=== PATIENT | male | born 1975 | race Caucasian/White ===

== ENCOUNTER 2021-09-07 16:22 | Emergency (ER) | payer OTHER, SELFPAY ==
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
[2021-09-07 17:52] VITALS: BP 129/81; PULSE 79; RESP 18; TEMP 36.3; O2SAT 98; BMI 30.9
[2021-09-07 19:46] VITALS: BP 130/80; PULSE 78; RESP 18; TEMP 36.6; O2SAT 98
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
== END 2021-09-07 21:09 | disposition home or self-care (01) ==
LOC: HO.ED 20:39
PROVIDERS: Emergency Provider Emergency Medicine
DX: M25.562 Pain in left knee (principal)
CPT/HCPCS: 73560; 99282; 99283

== ENCOUNTER 2024-05-25 10:25 | Outpatient (REF) | payer MEDICAID, SELFPAY ==
[2024-05-25 11:08] LABS: MANUAL DIFF FLAG NO
[2024-05-25 11:26] LABS: Basophils Absolute Auto 0.1 X10*3/uL (0.0-0.2); Basophils Percent Auto 0.6 % (0-2); Eosinophils Absolute Auto 0.3 X10*3/uL (0.0-0.4); Eosinophils Percent Auto 3.7 % (0-4); Hematocrit 41.5 % (42.0-52.0); Imm Gran Abs Auto 0.04 X10*3/uL (0.00-0.03); Imm Gran Pct Auto 0.5 % (0.0-0.4); Lymphocytes Absolute Auto 2.1 X10*3/uL (1.2-4.9); Lymphocytes Percent Auto 24.3 % (20-40); Mean Corpuscular HGB Conc 31.3 g/dl (31.0-36.0); Mean Corpuscular Hemoglobin 26.6 pg (27.0-33.0); Mean Platelet Volume 10.4 fL (9.4-12.4); Monocytes Absolute Auto 0.7 X10*3/uL (0.1-1.2); Monocytes Percent Auto 7.4 % (2-11); Neutrophils Absolute Auto 5.6 x10*3/uL (2.0-8.3); Neutrophils Percent Auto 63.5 % (45-73); Platelet Count 418 X10*3/uL (160-400); Red Blood Count 4.88 X10*6/uL (4.60-5.80); Red Cell Distribution Width 13.9 % (11.0-16.0); White Blood Count 8.8 X10*3/uL (4.8-10.8)
[2024-05-25 11:35] LABS: Alanine Aminotransferase 8 U/L (0-40); Albumin Level 4.3 g/dL (3.5-5.0); Alkaline Phosphatase 94 U/L (39-117); Anion Gap 11 (12-20); Aspartate Amino Transferase 13 U/L (5-37); Bilirubin Total 0.2 mg/dL (0.0-1.0); Blood Urea Nitrogen 9 mg/dL (9-16); Calcium 9.7 mg/dL (8.4-10.2); Carbon Dioxide 27 mmol/L (22-29); Chloride 107 mmol/L (96-108); Cholesterol 183 mg/dL (<200); Estimated Glomerular Filt Rate > 60; Glucose Random 95 mg/dL (60-115); HDL Cholesterol 41 mg/dL (>40); LDL Cholesterol Calculated 129 mg/dL (<100); Potassium 4.2 mmol/L (3.3-5.1); Sodium 141 mmol/L (135-145); Total Protein 8.2 g/dL (6.5-8.0); Triglycerides 67 mg/dL (<150)
== END 2024-05-25 10:26 | disposition home or self-care (01) ==
LOC: HO.10HDL 10:25
PROVIDERS: Visit Provider Internal Medicine
DX: Z00.01 Encounter for general adult medical examination with abnormal findings (principal); H54.62 Unqualified visual loss, left eye, normal vision right eye; I10 Essential (primary) hypertension; L10.0 Pemphigus vulgaris
CPT/HCPCS: 36415; 80053; 80061; 85025

== ENCOUNTER 2024-11-22 10:56 | Outpatient (REF) | payer MEDICAID, SELFPAY ==
[2024-11-22 12:29] LABS: Alanine Aminotransferase 15 U/L (0-40); Albumin Level 4.1 g/dL (3.5-5.0); Alkaline Phosphatase 106 U/L (39-117); Anion Gap 11 (12-20); Aspartate Amino Transferase 30 U/L (5-37); Bilirubin Total 0.6 mg/dL (0.0-1.0); Blood Urea Nitrogen 6 mg/dL (9-16); Calcium 9.2 mg/dL (8.4-10.2); Carbon Dioxide 27 mmol/L (22-29); Chloride 107 mmol/L (96-108); Cholesterol 145 mg/dL (<200); Estimated Glomerular Filt Rate > 60; Glucose Random 93 mg/dL (60-115); HDL Cholesterol 40 mg/dL (>40); LDL Cholesterol Calculated 92 mg/dL (<100); Potassium 4.1 mmol/L (3.3-5.1); Sodium 141 mmol/L (135-145); Total Protein 8.4 g/dL (6.5-8.0); Triglycerides 67 mg/dL (<150)
[2024-11-22 12:39] LABS: Uric Acid 5.7 mg/dL (3.4-7.0)
--- OUTSIDE RECORDS SUMMARY | 2024-11-22 12:55 | XMS_ITS | Clinical Summary ---
Author Organization [facility] Address [address] [place] [address] Care Team Providers Care Blower Room Attendant Name Role Phone Chyna Borden NP Primary Care Provider [phone] Source Comments PLEASE NOTE, if this patient is a minor, it may be UNLAWFUL to discuss sensitive information that is contained in these records (such as FAMILY PLANNING, MENTAL HEALTH or SUBSTANCE ABUSE) with the minor patient's parent or other person without the patient's specific authorization.[facility] Allergies No known active allergies Medications multivitamin tablet Take 1 Tablet by mouth once daily 90 Tablet 3 2 Active loratadine (CLARITIN) 10 mg tablet Take 1 Tablet by mouth once daily as needed for allergies 90 Tablet 2 3 Active sodium chloride (OCEAN) 0.65 % nasal sprayIndication s:Epistaxis Place 1 [place] into the nostril(s) as needed for congestion 104 mL 3 3 Active diclofenac sodium (VOLTAREN) 1 % gel Apply topically 2 (two) times daily 450 g 5 3 Active fluticasone (FLONASE) 50 mcg/actuation nasal spray SPRAY 1 SPRAY INTO EACH NOSTRIL EVERY DAY 48 mL 1 3 Active methotrexate 2.5 mg tablet TAKE 6 TABLETS BY MOUTH EVERY WEEK 96 Tablet 1 3 Active folic acid (FOLVITE) 1 mg tablet TAKE 1 TABLET BY MOUTH EVERY DAY 90 Tablet 1 4 Active Active Problems Problem Noted Date Diagnosed Date Osteoarthritis of left knee 06/07/2023 Overview (06/07/2023): Stable. Assessment & Plan (06/07/2023 1:58 PM EDT): Stable. Increased pressure in the eye, bilateral 023 Overview (06/07/2023): 07/16/[address] Gonsalo Adam. Pt reports Dr. Adam does not accept his new health insurance. Pt in need of new ophthalmology for injections. Assessment & Plan (06/07/2023 2:00 PM EDT): Pt reports Dr. Adam does not accept his new health insurance. Pt in need of new ophthalmology for injections. Class 1 obesity due to exces s calories without serious comorbidity with body mass index (BMI) of 30.0 to 30.9 in adult 03/24/2023 Overview (03/24/2023): Blanket body weight: 160 lb 12.8 oz (72.9 kg) Adjusted ideal body weight: 180 lb 14.1 oz (82 kg) -4.2 lb Working on lower caloric intake and increasing activities. Assessment & Plan (06/07/2023 1:52 PM EDT): 3.0 lb gained since last office visit. Discussed lower caloric intake and exercises. Assessment & Plan (03/24/2023 11:52 PM EDT): Working on lower caloric intake and increasing activities. Chronic rhinitis 03/07/2022 Overview (03/07/2022): PLAN: -NeilMed Sinus Rinse TID -Flonase QD (one spray to each nare) -Afrin TID (3 sprays each nare) x3 days only -Vaseline to nasal vestibule in morning and at night to prevent crusting -Use home humidifier and avoid allergens -Follow up as needed, sooner if issue or symptoms worsen ?? Patient is in agreement with the above plan and understands the given recommendations. I was physically present for the E/M service provided. I have personally reviewed all the relevant radiographic images and laboratory results reported above. ?4:55 PM Last Resulted: 03/05/22 Assessment & Plan (05/28/2022 4:16 PM EDT): Continue to follow up with ENT Complex tear of medial menis cus of left knee as current injury 03/07/2022 Overview (03/07/2022): 07/2021 surgically repaired. Assessment & Plan (03/24/2023 11:53 PM EDT): Stable after surgery. [place]-Schlatter's disease of both knees 022 Overview (03/07/2022): Right knee xray 05/2020 Diverticulosis of sigmoid colon 02/10/2022 Assessment & Plan (06/07/2023 1:53 PM EDT): Asymptomatic. Noted during colonoscopy. Pemphigoid 02/06/2022 Overview (02/06/2022): ASSESSMENT/PLAN: Vastly improved nasal mucosa after use of nasal saline with baby shampoo. Avoid picking. If worsens, consider evaluation by skin grader at [facility] [place]he works in [place]). Assessment & Plan (06/07/2023 1:48 PM EDT): Referred to ophthalmology. Temporarily refilled folic acid (FOLVITE) 1 mg tablet Take 1,000 mcg by mouth once daily methotrexate sodium 2.5 mg tablet TAKE 6 TABLETS BY MOUTH EVERY WEEK Pt to go [place] [facility] [place] vision changes. Assessment & Plan (03/24/2023 11:56 PM EDT): Stable. Managed by dermatology Empty nose syndrome 02/06/2022 Overview (02/06/2022): ASSESSMENT/PLAN: Vastly improved nasal mucosa after use of nasal saline with baby shampoo. Avoid picking. If worsens, consider evaluation by skin grader at [facility] [place] (he works in [place]). Electronically signed by Akhil Alonso MD Hx of colonoscopy 02/06/2022 Overview (02/10/2022): [ ] 01/2027 colonoscopy Findings: ?Two sessile polyps were found in the transverse colon and ?cecum. The polyps were 2 to 3 mm in size. These polyps were ?removed with a cold snare. Resection and retrieval were ?complete. ?Multiple diverticula were found in the sigmoid colon. There ?was inflammation c/w diverticulitis. Impression: ?- Two 2 to 3 mm polyps in the transverse ?colon and in the cecum, removed with a ?cold snare. Resected and retrieved. ?- Diverticulosis in the sigmoid colon. Recommendation: ?- Await pathology results. ? - Repeat colonoscopy in 5 years for ?surveillance. Blister (nonthermal) of oral cavity, initial enc ounter 11/28/2020 Overview (12/01/2020): DDx Pemphigus. Spoke with dentist at [facility] Dr. Ivett Drew who feels pt oral lesion might be due to Pemphigus. Dentist referred patient to [facility] oral pathology for eval. And treatment. Dr. Dove will be sending fax with recommended lab test to assist to confirm dx. Contact Dr. Earl's office and office check with Dr. Earl who stated he does see patient with this type of condition. Urgent referral will be placed. Assessment & Plan (03/24/2023 11:50 PM EDT): Stable. Assessment & Plan (05/28/2022 4:16 PM EDT): Due for dental cleaning. Pt to contact dentist to schedule visit. 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 Adam Assessment & Plan (03/24/2023 11:54 PM EDT): Sharmila. Followed by ophthalmology Central retinal vein occlusion of left eye 11/02 Overview (06/07/2023): Was managed by [facility] ophthalmology who does not accept patient's health insurance. Previously managed by [facility] [place]. Montoya. Referred to ophthalmology. Temporarily refilled folic acid (FOLVITE) 1 mg tablet Take 1,000 mcg by mouth once daily methotrexate sodium 2.5 mg tablet TAKE 6 TABLETS BY MOUTH EVERY WEEK Pt to go to [facility] for vision changes. Assessment & Plan (06/07/2023 1:49 PM EDT): Referred to ophthalmology. Temporarily refilled folic acid (FOLVITE) 1 mg tablet Take 1,000 mcg by mouth once daily methotrexate sodium 2.5 mg tablet TAKE 6 TABLETS BY MOUTH EVERY WEEK Pt to go to [facility] for vision changes. Assessment & Plan (03/24/2023 11:50 PM EDT): Followed by ophthalmology. Sharmila. Hyperlipidemia 10/19/2020 Overview (03/07/2022): The 10-year ASCVD risk score (Kenziedaniela REBOLLAR Jr., et al., 2013) is: 3.9% 10/19/20: The 10-year ASCVD risk score (Kenziedaniela REBOLLAR Jr., et al., 2013) is: 7.8% - will work on diet change, f/u in 1 year Assessment & Plan (03/24/2023 11:54 PM EDT): Lab Results Component Value Date TRIGLYC 56 02/08/2022 CHOL 190 02/08/2022 HDL 45 02/08/2022 LDL 134 (H) 02/08/2022 NONHDL 145 02/08/2022 stable. Ordered fasting lipids. Assessment & Plan (03/07/2022 11:50 AM EDT): Lab Results Component Value Date TRIGLYC 56 02/08/2022 CHOL 190 02/08/2022 HDL 45 02/08/2022 LDL 134 (H) 02/08/2022 NONHDL 145 02/08/2022 History of tobacco use 10/17/2020 Overview (10/17/2020): 10/17/20: no smoking x 1 month Assessment & Plan (06/07/2023 1:51 PM EDT): Quit years ago. Assessment & Plan (04/18/2021 5:11 PM EDT): Recommend to quit. Pt is trying. Assessment & Plan (10/17/2020 2:50 PM EST): No smoking x 1 month Commended! No cravings at the moment, declines meds at this moment Central retinal vein occlusi on with macular edema of left eye 10/15/2020 Apophysitis of patella 05/24/2020 Overview (05/24/2020): Hx of apophysitis of the Tibial Tuberosity as a child. Pt c/o bilateral knee pain Resolved Problems Problem Noted Date Diagnosed Date Resolved Date Lack of adequate food 10/17/20202022 Assessment & Plan (10/19/2020 3:13 PM EST): Patient is experiencing food insecurity. Health impacts include: Worsened chronic disease mgmt Plan: Food Insecurity Z59.4 added to the problem list and Referred to on-team healthcare consultant for further assessment Lack of housing 10/17/2020 06/07/2023 Assessment & Plan (10/19/2020 3:13 PM EST): Patient is experiencing housing insecurity:? Problems with housing conditions Health impacts include: Other affects health goals PLAN:? Housing Insecurity Z59.1 added to the problem list and Referral to on- team Survey Interviewer for further assessment Immunizations Name Administration Dates Next Due Flu, Multi Dose 0.5 ML 10/17/2020 Hep B, Adult/Adol (ENERGIX/RECOMBIVAX) PNEUMOCOCCAL POLYSACCHARIDE PPV23 05/24/2020 Pfizer COVID vaccine, aguilar VALDES cap, 12+ 0 02/06/2022 TDAP 02/02/2016 Family History Medical History Relation Name Comments Other Father liver disease d ue drug and alcoholism Other Mother arthritis Relation Name Status Comments Father Alive Mother Alive Social History Tobacco Use Types Packs/Day Years Used Date Smoking Tobacco: Every Day Cigarettes Started: 03/05/2022 Smokeless Tobacco: Never Tobacco Cessation:Ready to Q uit: Not Asked; Counseling Given: Not Answered Comments:Cutting down. Alcohol Use Standard Drinks/Week Comments Not Currently 0 (1 standard drink = 0.6 oz pur e alcohol) used to drink socially. Social Connections Answer Date Recorded Connectedness 0 05/29/2024 Financial Resource Strain Answer Date R ecorded Financial Resource Strain 0 2019 Stress Answer Date Recorded Stress 0 03/14/2020 Physical Activity Answer Date Recorded Physical Activity 0 03/14/2020 Food Insecurity Answer Date Recorded Food 0 03/24/2023 Transportation Needs Answer Date Record ed Transportation 0 03/24/2023 Housing Stability Answer Date Recorded Housing 0 03/24/2023 Safety and Environment Answer Date Kaz rded Safety 0 03/14/2020 Utilities Answer Date Recorded Utilities 0 03/24/2023 Employment Answer Date Recorded Stress 0 03/24/2023 Sex and Gender Information Value Date Recorded Sex Assigned at Male 10/17/2020 11:27 AM PST Legal Sex Male 10:23 AM PDT Gender Identity Male 10/17/2020 11:27 AM PST Sexual Orientation Straight 10/17/2020 11 :27 AM PST Last Filed Vital Signs Vital Sign Reading Time Taken Comments Blood Pressure 123/87 06/04/2023 11:11 AM EDT Pulse 72 06/04/2023 11:11 AM EDT Temperature 36.8 ??C (98.3 ??F) 06/04/2023 11:11 AM E DT Respiratory Rate 18 06/04/2023 11:11 AM EDT Oxygen Saturation 97% 03/07/2022 11:47 AM EDT Inhaled Oxygen Concentration - - Weight 97.1 kg (214 lb) 06/04/2023 11:11 AM EDT Height 178 cm (5' 10.08 ) 03/24/2023 3:22 PM EDT Body Mass Index 30.64 03/24/2023 3:22 PM EDT Plan of Treatment Health Maintenance Due Date Last Done Comments Tobacco Screening 1977 Imm-Zoster, Recombinant (1 of 2) 1996 Imm-Pneumococcal (2 of 2 - PCV) 05/24/2021 Tobacco Cessation Counseling (#1) 03/05/2022 CT Colonography 2022 FIT/gFOBT 2022 Fecal DNA 2022 Flexible Sigmoidoscopy 2022 Imm-Hepatitis B (2 of 3 - 19 + 3-dose series) 04/21/2023 03/24/2023 Annual Preventive Care Visit 03/24/202411/2022, 03/07/2022, 10/17/2020 [id number] ( season) 2024 02/06/2022, 01/30/2021, 01/09/2021 Imm-Influenza (#1) 2024 10/17/2020 Hypertension Screening (#1) 06/03/2024 LTBI Screening (#1) 06/04/2024 06/04/2023 Syphilis Screening 06/04/2024 06/04/2023, 10/17/2020 Alcohol and Drug Screen 09/22/2024 03/24/20 23, 09/27/2021, 04/10/2021, Additional history exists Depression Annual Screen 09/22/2024 023, 09/27/2021, 10/17/2020 Imm-DTaP/Tdap/Td (2 - Td or Tdap) 02/01/2026 016 Diabetes Screening 06/04/2026 06/04/2023, 0 02/08/2022, 02/08/2022, Additional history exists Lipid Screening 06/04/2028 06/04/2023, 05/23, 02/08/2022, Additional history exists Colonoscopy 11/22/2031 11/21/2021 Colorectal Cancer Screening 11/22/2031 HIV Screening Completed 10/17/2020, 10/17/2020 Hepatitis C Screening Completed 10/17/2020, 021 Procedures Procedure Name Priority Date/Time Associated Diagnosis Comments SYPHILIS AB/REFLEX Routine 06/04/2023 12 :13 PM EDT Screening examination for venereal disease QUANTIFERON-TB GOLD Routine 06/04/2023 1 2:13 PM EDT Screening for tuberculosis COMPREHENSIVE METABOLIC PANEL Routine 06/04/2023 12:13 PM EDT Mixed hyperlipidemia Taking medication for chronic disease LIPID PANEL Routine 06/04/2023 12:13 PM EDT Encounter for screening for cardiovascular disorders HISTORIC COLONOSCOPY 11/21/2021 3:00 AM EST HIV 1/2 AG/AB Routine 10/17/2020 3:21 PM EST Routine general medical examination at a health care facility HEPATITIS C ANTIBODY Routine 10/17/2020 3:21 PM EST Routine general medical examination at a health care facility from Last 3 Months or Most Recently Relevant to Health Maintenance Results * SYPHILIS AB/REFLEX (06/04/2023 12:13 PM EDT) T.PALLIDUM AB NEGATIVE NEGATIVE [facility] Comment: (NOTE) No antibodies to T. pallidum (the agent causing syphilis) were detected in the specimen. This result, however, does not exclude very recent T. pallidum infection; testing of a second specimen, collected 2-4 weeks after this specimen, is recommended if the index of suspicion for recent infection is high. Blood Blood / Unknown 06/04/2023 1 2:13 PM EDT Chyna Borden NP LAB - BLOOD DRAW Final Result Performing Organization Address [facility] Co de Phone Number [facility] [id number] [place] [address], [place] * QUANTIFERON-TB GOLD (06/04/2023 12:13 PM EDT) [facility] QUANTIFERON-TB GOLD NEGATIVE NEGATIVE [facility] [place] Comment: (NOTE) Negative test result. M. tuberculosis complex infection unlikely. NIL 0.04 IU/mL [facility] MITOGEN-NIL >10.00 IU/mL [facility] TB1-NIL 0.00 IU/mL [facility] TB2-NIL <0.00 IU/mL [facility] Comment: (NOTE) The Nil tube value reflects the background interferon gamma immune response of the patient's blood sample. This value has been subtracted from the patient's displayed TB and Mitogen results. Lower than expected results with the Mitogen tube prevent false-negative Quantiferon readings by detecting a patient with a potential immune suppressive condition and/or suboptimal pre-analytical specimen handling. The TB1 Antigen tube is coated with the M. tuberculosis-specific antigens designed to elicit responses from TB antigen primed CD4+ helper T-lymphocytes. The TB2 Antigen tube is coated with the M. tuberculosis-specific antigens designed to elicit responses from TB antigen primed CD4+ helper and CD8+ cytotoxic T-lymphocytes. For additional information, please refer to https://education.Immunetics.Vascular Magnetics/faq/DCC861 (This link is being provided for informational/ educational purposes only.) Blood Blood / Unknown 06/04/2023 1 2:13 PM EDT Chyna Borden NP LAB - BLOOD DRAW Final Result Performing Organization Address [facility]/ZIP Co de Phone Number [facility] [address] [address], [place] * (ABNORMAL) LIPID PANEL (06/04/2023 12:13 PM EDT) HDL 45 >39 mg/dL [facility] CHOLESTEROL 187 0 - 200 mg/dL [facility] TRIGLYCERIDE 62 0 - 150 mg/dL [facility] LDL 130(H) <130 mg/dL [facility] Comment: REFERENCE RANGE: Adult >= 18 years: - Desirable: ??<100 - Above desirable: 100-129 - Borderline high: 130-159 - High: 160-189 - Very High: >=190 Pediatric 2-17 years: - Acceptable: <110 - Borderline high: 110-129 - High: >=130 Reference ranges have not been established for patients that are less than 24 months of age. CARDIAC RISK RATIO 4.2 <5 [facility] NON HDL CHOL 142 mg/dL [facility] Comment: Reference Range: The non-HDL Cholesterol value should not exceed the desired LDL-C by more than 30 mg/dl. Processed and/or performed at [address] [place] [address] Blood Blood / Unknown 06/04/2023 1 2:13 PM EDT us Chyna Borden NP LAB - BLOOD DRAW Final Result [address] [address], [place] [phone] * COMPREHENSIVE METABOLIC PANEL (06/04/2023 12:13 PM EDT) SODIUM 140 136 - 145 mmol/L [facility] POTASSIUM 4.5 3.6 - 5.1 mmol/L [facility] CHLORIDE 103 98 - 107 mmol/L [facility] CARBON DIOXIDE 27 22 - 32 mmol/L [facility] BUN 10 6 - 20 mg/dL [facility] CREATININE 1.02 0.6 - 1.3 mg/dL [facility] GLUCOSE 68 65 - 99 mg/dL [facility] ALBUMIN 4.4 3.5 - 5.2 g/dL [facility] TOTAL PROTEIN 7.9 6.1 - 8.1 g/dL [facility] CALCIUM 9.6 8.9 - 10.3 mg/dL [facility] ALK PHOS 89 40 - 130 U/L [facility] TOTAL BILIRUBIN 0.3 0.0 - 1.2 mg/dL [facility] AST 18 15 - 41 U/L [facility] ALT 15 10 - 50 U/L [facility] GLOBULIN 3.5 1.9 - 4.1 g/dL [facility] EGFR 92 60 - 128 mL/min/1.7 3m2 [facility] Comment: Estimated glomerular filtration rate calculated using the CKD-EPI refit equation. ANION GAP 10 3 - 17 mmol/L [facility] Comment:Processed and/or per formed at [address] [place] [address] Blood Blood / Unknown 06/04/2023 1 2:13 PM EDT Chyna Borden NP LAB - BLOOD DRAW Final Result Performing Organization Address City/[facility]/ZIP Co de Phone Number [address] [address], [place] [phone] * HISTORIC COLONOSCOPY (11/21/2021 3:00 AM EST) 11/21/2021 3:00 AM EST Chyna Borden DISASTER RECOVERY CONSULTANT PROCEDURES Final Result * HIV 1/2 AG/AB (10/17/2020 3:21 PM EST) Pathologist [facility] HIV 1/2 AB/AG Negative Negative [facility] Comment:Processed and/or per formed at [facility], [address] [place] [address] Blood Blood / Unknown 10/17/2020 3 :21 PM EST Kailey Brunson MD LAB - BLOOD DRAW Final Result [address] [place] [address], [place] [phone] * HEPATITIS C ANTIBODY (10/17/2020 3:21 PM EST) HCV ANTIBODY Negative Negative [facility] Comment:Processed and/or per formed at [address] Blood Blood / Unknown 10/17/2020 3 :21 PM EST us Kailey Brunson MD LAB - BLOOD DRAW Final Result [facility] [address] [facility]?? [place] [address], [place] [phone] from Last 3 Months or Most Recently Relevant to Health Maintenance Insurance [place] [employer] [place] Care Teams Blower Room Attendant Relationship Specialty Start Date End Date Chyna Borden NP [address] [place] [id number] PCP - General DISASTER RECOVERY CONSULTANT Nurse Practitioner 03/14/20
--- OUTSIDE RECORDS SUMMARY | 2024-11-22 12:55 | XMS_ITS | Clinical Summary ---
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 20 tablet 03/30/2024 Active ibuprofen 600 MG tablet Take 1 tablet (600 mg) by mouth every 6 (six) hours if needed for mild pain for up to 20 doses. 20 tablet 03/30/2024 Active Active Problems Problem Noted Date Diagnosed Date Severe dental caries 03/30/2024 Periodontal disease 03/30/2024 Social History Tobacco Use Types Packs/Day Years Used Date Smoking Tobacco: Former Cigarettes Passive Smoke Exposure: Never Smokeless Tobacco: Former Tobacco Cessation:Counseling Given: Not Answered Alcohol Use Standard Drinks/Week Comments Defer 0 (1 standard drink = 0.6 oz pur e alcohol) Sex and Gender Information Value Date Recorded Sex Assigned at Male 07/22/2022 10:17 AM EDT Legal Sex Male 10:17 AM EDT Gender Identity Male 03/30/2024 8:12 AM EDT Sexual Orientation Straight 03/30/2024 8: 12 AM EDT Plan of Treatment Health Maintenance Due Date Last Done Comments CT Colonography 1977 Colonoscopy 1977 Colorectal Cancer Screening 1977 Depression Screening 1977 FIT DNA/Cologuard 1977 FIT 1977 FOBT 1977 Lipid Panel 1977 SDOH Screening 1977 Sigmoidoscopy 1977 Alcohol/Substance Use Screening 1989 Family Planning (PISQ) 1992 Hepatitis C Screening 1995 Dental Prophylaxis 04/29/2013 10/29/2012 Dental Oral Exam 03/28/2015 09/27/2014, 08/28/2012 Dental X-Ray: Full Mouth 08/29/2015 08/28/2012 Dental X-Ray: Bitewings 09/28/2015 09/27/19 15, 08/28/2012 Hepatitis B Vaccines (2 of 3 - 19+ 3-dose series) 04/21/2023 03/24/2023 COVID-19 Vaccine (4 - 2023-2 5 season) 2024 02/06/2022, 01/30/2021, 01/09/2021 Influenza Vaccine (#1) 2024 10/17/2020 Tobacco Screening 03/30/2025 03/30/2024 DTaP/Tdap/Td Vaccines (2 - T d or Tdap) 02/01/2026 02/02/2016 Zoster Vaccines (1 of 2) 2027 RSV Patients and Patients Aged 60 years or older (1 - 1-dose 75+ series) 2052 Pneumococcal Vaccine: Pediatrics (0 to 5 Years) and At-Risk Patients (6 to 49) Years) Aged Out 05/24/2020 No longer eligible b ased on patient's age to complete this topic HIV Screening Completed 10/17/2020 HIB Vaccines Aged Out No longer eligi ble based on patient's age to complete this topic HPV Vaccines Aged Out No longer eligi ble based on patient's age to complete this topic Hepatitis A Vaccines Aged Out No long er eligible based on patient's age to complete this topic IPV Vaccines Aged Out No longer eligi ble based on patient's age to complete this topic Meningococcal Vaccine Aged Out No robin yoel eligible based on patient's age to complete this topic RSV under 20 months Aged Out No longe r eligible based on patient's age to complete this topic Rotavirus Vaccines Aged Out No longer eligible based on patient's age to complete this topic Procedures Procedure Name Priority Date/Time Associated Diagnosis Comments BITEWINGS - 4 RADIOGRAPHIC IMAGES Routine 09/27/2014 12:00 AM EST PERIODIC ORAL EVALUATION - ESTABLISHED PATIENT Routine 09/27/2014 12:00 AM EST PROPHYLAXIS - ADULT Routine 10/29/2012 1 2:00 AM EST INTRAORAL - COMPLETE SERIES OF RADIOGRAPHIC IMAGES Routine 08/28/2012 12:00 AM EST from Last 3 Months or Most Recently Relevant to Health Maintenance Insurance [facility] C3 DENTAL-[facility] MEDICAID STAND ADULT
== END 2024-11-22 10:57 | disposition home or self-care (01) ==
LOC: HO.10HDL 10:56
PROVIDERS: Visit Provider Internal Medicine
DX: E78.00 Pure hypercholesterolemia, unspecified (principal); I10 Essential (primary) hypertension; M10.9 Gout, unspecified; Z68.29 Body mass index [BMI] 29.0-29.9, adult
CPT/HCPCS: 36415; 80053; 80061; 84550

== ENCOUNTER 2025-02-17 18:42 | Emergency (ER) | payer MEDICAID, SELFPAY ==
--- NOTE | ~2025-02-17 | XR_ITS ---
CLINICAL HISTORY: fall, pain 3 view, 6 images right knee Comparison: None Findings: No fractures or dislocations. No significant arthritic change or erosions. Small joint effusion. No radiopaque foreign body. IMPRESSION: 1. No acute fracture or dislocation. 2. Small joint effusion. This document has been electronically signed by: Richar Martinez MD on 02/17/2025 19:49:17
[2025-02-17 18:57] VITALS: BP 140/72; PULSE 101; RESP 20; TEMP 36.4; O2SAT 97; BMI 29.8
--- NOTE | 2025-02-17 18:57 | ED_ITS ---
HPI - Extremity Injury (Lower) General Chief Complaint: Extremity Problem Stated Complaint: right knee injury Time Seen by Provider: 02/17/25 19:28 Source: patient Mode of arrival: wheelchair Limitations: no limitations History of Present Illness ED Provider: isaac craig np HPI Narrative: Patient is a 49-year-old male who presents emergency department for evaluation of right knee injury. 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 Upon attempting to stand he felt as though the knee was pushing inward/medially. Has pain primarily to the medial aspect of the knee. Admits to a history of chronic intermittent pain secondary to arthritis and has a history of Colbert Schlatter disease. He denies any numbness tingling or cold sensation to the extremity. There was no associated head strike or loss of consciousness with this injury. Related Data Previous Rx's ?Medication ?Instructions ?Recorded naproxen 500 mg tablet (Naprosyn) 500 mg PO BID #20 tabs 09/07/21 Allergies Allergy/AdvReac Type Severity Reaction Status Date / Time No Known Allergies Allergy Verified 02/17/25 18:58 Review of Systems Review of Systems: Yes all other systems are reviewed and are negative PMFSH Past Medical History Attestation statement: The following information was validated with the patient. Source: old records reviewed Medical History Autoimmune deficiency syndrome Social History Social History Smoked in Last 30 Days: No Use of substances other than those prescribed or required for medical reasons: No Advance Directives: No Advance Directives Information Provided: No Physical Exam Vital Signs: Vital Signs: Last Vital Signs Temp 97.5 F 02/17/25 18:57 Pulse 101 H 02/17/25 18:57 Resp 20 02/17/25 18:57 BP 140/72 H 02/17/25 18:57 Pulse Ox 97 02/17/25 18:57 O2 Del Method Room Air 02/17/25 18:57 BMI result Body Mass Index 29.8 Appearance: Alert.?Oriented to person, place and time. No acute distress.?Normal affect. CVS: Heart sounds normal. Normal heart rate and rhythm.? Pulses normal.?? Respiratory: No respiratory distress.? Lung sounds clear to auscultation bilaterally?? Abdomen: Soft and non-tender. Normoactive bowel sounds. Skin: Skin warm and dry.? Normal skin color.? ?? Extremities: No lower extremity edema.? No calf ttp. Small effusion to the right knee. No ecchymosis. No laxity on examination. Negative anterior and posterior drawer test. Positive valgus stress test, negative varus stress test. 2+ DP/PT pulse Neuro: Moves all extremities spontaneously. Sensation intact bilaterally. No focal neuro deficits. Ambulates with antalgia gait. Course Course Course Narrative: This is an RME: Additional HPI, ROS, PE not included below will be deferred to primary provider. RME assessment and note performed by: Juan Carlos Llamas PA-C 49 year old male with history of prabhu schlatter disease, presents to the emergency department after sustaining an injury to the right knee after axial loading while playing baseball. 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 He states he is unable to weightbear on the right knee, and wrapped in a knee immobilizer. PE: R knee with mild edema, no ecchymosis, or erythema. Full ROM but pain with flexion, unable to weight bear. Currently in wheelchair in triage. Plan: R knee XR. Medicating in triage with 975 Tylenol for pain management. Medications Administered Discontinued Medications Generic Name Dose Route Start Last Admin Trade Name Freq PRN Reason Stop Dose Admin Acetaminophen 975 mg 02/17/25 19:02 02/17/25 19:05 Acetaminophen 325 Mg Tablet PO 02/17/25 19:03 975 mg ONCE ONE Administration Medical Decision Making Medical Decision Making [facility] Narrative: Patient is a 49-year-old male presents emergency department for evaluation of traumatic right knee pain as per HPI. Extremities neurovascularly intact distally, there is no obvious deformity on evaluation. Full range of motion to hip and ankle. Decreased AROM to the right knee secondary to pain with positive valgus stress test on examination in the small joint effusion. XR was obtained there was no acute fracture dislocation. Given history and physical examination an Cuauhtemoc bandage was placed in addition to a knee immobilizer and who was provided with crutches. We discussed conservative treatment, outpatient follow-up with orthopedics for persistent symptoms. Reviewed worrisome signs and symptoms that would warrant re-evaluation in the emergency department. All questions answered. Stable for discharge Differential Diagnosis Differential Diagnoses: The differential diagnosis associated with the presentation includes (Fracture, dislocation, sprain, ligamentous injury, meniscus injury) Independent Interpretation I performed an independent interpretation of an: Plain X-Ray (See narrative above) Radiology Impression Discussion of test interpretation with radiology: I have reviewed the radiologist's reading. Radiologist Impression: 3 view, 6 images right knee Comparison: None Findings: No fractures or dislocations. No significant arthritic change or erosions. Small joint effusion. No radiopaque foreign body. IMPRESSION: 1. No acute fracture or dislocation. 2. Small joint effusion. Independent Historian Clinical information obtained from an independent historian. History obtained from or confirmed by: Spouse External Record Review External record reviewed: Outpatient record Tests considered The following testing was considered but not selected: No indication for emergent MRI Prescription Management I considered prescription management with: Pain Medication Discharge Plan Discharge Clinical Impression: Right knee sprain Patient Disposition: Home, Self-Care Instructions: Crutch Instructions (ED), How to Use an Elastic Bandage (ED), P.R.I.C.E. Treatment (ED) Additional Instructions: As discussed, x-ray does not show evidence of fracture dislocation to your knee. You do have what is known as a joint effusion a small buildup of fluid within the knee joint just likely secondary to her injury today. As discussed, what can not be seen on x-ray imaging or things such as ligament injury, or meniscus injury. Knee has been wrapped in an Cuauhtemoc bandage for compression. Be sure to rest over the next few days, apply ice for 10-15 minutes 4-6 times daily, elevate your legs above your chest, You can take ibuprofen 200 mg, 3 tablets (600mg) every 6- 8 hours as needed for pain, in addition to Tylenol 500 mg, 2 tablets (1,000mg) every 4-6 hours as needed for pain, but not to exceed 3 doses daily (3,000mg).? Use the knee immobilizer as provided any time you are up and walking/weight- bearing, in addition to the crutches. If you are not having improvement in your symptoms you may follow-up with PCP/Orthopedics. Return with any new or worsening symptoms or concerns Prescriptions: No Action naproxen [Naprosyn] 500 mg tablet 500 mg PO BID Qty: 20 0RF Referrals: [facility] [Provider Group] Susan Valerio MD [Primary Care Provider] - Print Language: Danish
[2025-02-17] MEDS: Acetaminophen 325 MG TABLET 975 MG PO (19:05)
[2025-02-17 21:31] VITALS: BP 140/78; PULSE 100; RESP 20; TEMP 36.4; O2SAT 97
== END 2025-02-17 21:32 | disposition home or self-care (01) ==
PROVIDERS: Emergency Provider Emergency Medicine; PCP Internal Medicine
DX: S83.91XA Sprain of unspecified site of right knee, initial encounter (principal); M25.561 Pain in right knee; X58.XXXA Exposure to other specified factors, initial encounter; Y93.9 Activity, unspecified; Y92.9 Unspecified place or not applicable; Y99.8 Other external cause status
CPT/HCPCS: 73564; 99283; 99284

== ENCOUNTER → 2025-02-17 19:02 | Outpatient (BNV) | payer MEDICAID, SELFPAY | PROVIDERS: PCP Internal Medicine; Visit Provider Student in an Organized Health Care Education/Training Program | DX: M25.561 Pain in right knee (principal) | CPT/HCPCS: 73564 ==

== ENCOUNTER 2025-05-06 14:00 | Outpatient (AMB) | payer OTHER, SELFPAY ==
--- NOTE | 2025-05-06 14:02 | MHC.OFFVIS ---
Intake Visit Reasons: ED F/U - Right Knee Sprain 02/17/25 Intake Note: Wellington is a 49 year old male who presents today as a new patient for an ER follow up of right knee sprain, DOI 02/17/25. Patient presented to [facility] ER that he was playing softball, he was playing 3rd base when he went to catch a ground ball to his right side and felt his knee went inward. He fell to ground and was unable to get up and apply weight to his right leg. He had x-rays, an zamzam wrap was applied and crutches were given. MRI done at [facility]. Today patient reports his pain is located at the anterior aspect of knee. States upon getting up it takes him awhile to get going. He is unable to run/jog. He has been performing at home exercises. Finds relief with Tylenol. He uses knee brace for support. History of Ileana Schlatter disease on both knees. Allergies No Known Allergies Allergy (Verified 05/06/25 14:17) [facility] HPI ED F/U - Right Knee Sprain 02/17/25: Details: 49 yo male presents to the office today for an injury to his right knee on 02/17/25 while playing softball. He states he went to get the ball and his knee buckeled and fell. He was seen by his PCP who ordered an MRI and referred him to our office for ortho eval. He has no prior injury to the right knee. He states he did have surgery on his left knee many years ago and does remember some exercises for the left knee therefore he decided to do them on the right to improve his range of motion. Currently he complains of pain and instability while walking down stairs or on flat ground without the brace he feels unstable. He states he is trying to be more active and improve his health and with his current knee injury this is limiting his ability to do so. [facility] Medical History (Updated 05/06/25 @ 15:24 by Drake Watson PA-C) Hypercholesterolemia Hypertension Autoimmune deficiency syndrome Surgical History (Updated 05/06/25 @ 14:13 by DONELL Buenrostro) Hx of colonoscopy Hx of left knee surgery Social History (Updated 05/06/25 @ 14:14 by DONELL Buenrostro) Patient Tobacco Use Status: Former Tobacco user Current occupation: [employer] Review of Systems Const All systems reviewed & are unremarkable except as noted in HPI and below Physical Exam Const General: cooperative and no acute distress Orientation/consciousness: patient oriented x3 Resp Effort & Inspection: normal respiratory effort and able to speak in complete sentences Cardio Peripheral pulses: Peripheral pulses 2+ throughout Neuro General: patient oriented x3 Extrem Other: Right knee is normal to inspection. He does have good range of motion and can bring his leg to full extension. There is increased laxity with anterior drawer when compared to contralateral side. No significant tenderness over the medial or lateral joint space. Calf supple and nontender neurovascularly intact. Results Reviewed Results Reviewed: MR KNEE WITHOUT CONTRAST RIGHT 03/26/25 CLINICAL INFORMATION: Patient complains of knee pain status post fall injury 1 month ago. TECHNICAL INFORMATION: Multiplanar and multisequence MRI of the knee per departmental protocol. ENCOUNTER:?Initial COMPARISON:?None INTERPRETATION: Medial Compartment: There is prominent horizontal linear signal noted parallel to the inferior articular margin most consistent with meniscal tearing. There is medial inferior subluxation of the portion of the body and posterior horn (image 7 of series 8). There is abnormal signal of the proximal MCL which may represent a grade 2/3 tear (image 9 of series 8). The medial compartmental cartilage is intact. Intercondylar Notch: There is diffuse abnormal signal of the ACL most consistent with an acute ACL tear more towards the femoral origin. No normal-appearing ligament signal is seen. There is extensive bone marrow edema of the posterior lateral tibial plateau and mildly of the anterior lateral femoral condyle. There is a fracture noted involving the posterior aspect of the lateral tibial plateau with 2 to 3 mm of depression/displacement (image 18 of series 27). There is mild bone marrow edema of the posterior medial tibial plateau and the medial aspect of the medial femoral condyle. This is consistent with valgus stress bone contusions from the ACL and MCL tears. The PCL is intact. The popliteal muscle and mild increased signal at its origin fibers consistent with mild muscle sprain. The popliteal tendon is intact. Lateral Compartment: The lateral meniscus, LCL complex and lateral compartmental cartilage are intact. Extensor mechanism: The distal quadriceps tendon is intact. The patellar ligament is intact. Patellofemoral Joint: There is a small joint effusion. The patella is congruent with the femoral trochlea. The patella cartilage and femoral trochlea cartilage are intact. The medial and lateral patellar retinaculum and patellofemoral ligaments are intact. Popliteal Fossa Region: There is a tiny medial popliteal cyst. The visualized muscles in the popliteal region are intact without muscle edema or atrophy. CONCLUSION: 1. There is a complete ACL tear with diffuse abnormal signal of the ligament. 2. There is a grade 2/3. The origin of the MCL. This is probably more towards a complete grade 3. 3. There is extensive valgus stress bone contusions of the lateral tibial plateau, medial tibial plateau, anterior lateral femoral condyle and medial aspect of the medial femoral condyle. Correlate with plain films for underlying fracture line noted in the posterior lateral tibial plateau with 2 to 3 mm of depression. 4. Mild popliteal muscle sprain. 5. There is a horizontal tear of the inferior margin of the posterior horn of the medial meniscus with a partially posterior inferiorly subluxed meniscal fragment Assessment & Plan Assessment & Plan (1) Complete tear of anterior cruciate ligament of right knee: Code(s): S83.511A - Sprain of anterior cruciate ligament of right knee, initial encounter Category: Medical Plan: We discussed options and given his desire to remain active and reduce the risk early posttraumatic arthritis he would benefit from surgical intervention for optimal functioning. The patient does understand nonsurgical intervention would result in significantly limited function and worsening instability and result in more significant posttraumatic arthritis. We discussed the procedure in detail along with the risks benefits and alternatives. Risks including but not limited to infection, rerupture of the ligament or the body rejecting the ligament, injury to surrounding nerves and tissue and bone, small and large vessels, stiffness,need for further surgery, DVT/PE along with intraoperative complications including but not limited to mortality. We discussed postoperative recovery which includes brace for 6 weeks with physical therapy for range of motion and quad activation however refraining from any type of impact or agility exercises. Overall recovery would typically be anywhere from 3-6 months depending on exactly what activities he would like to engage in. The patient does express understanding we would like to proceed with right knee ACL reconstruction with allograft with Dr. Doran. The patient will be booked accordingly. Medications: Discontinued naproxen (Naprosyn) Discontinued Reason: Patient no longer taking 500 mg PO BID 20 tabs 0RF Coding Level of Care Code New Pt Level 4 (33659) Complex EM visit Add On G2211 Diagnoses Complete tear of anterior cruciate ligament of right knee S83.511A
--- OUTSIDE RECORDS SUMMARY | 2025-05-06 14:03 | XMS_ITS | Encounter Summary ---
Author Organization [facility] Address [address] [place] [phone] Phone Care Team Providers Care Rail Switchman Name Role Phone Pcp, Not Required Primary Care Provider Chyna James NP Primary Care Provider [phone] Amado Naranjo MD Unavailable +- [phone] Encounter Details Date Type Department Care Team (Late st Contact Info) Description 06/01/2020 Ophth Exam [facility] [address] [place] [address] Alana Nelson MD [email or web address] Social History Tobacco Use Types Packs/Day Years Used Date Smoking Tobacco: Every Day Cigarettes Smokeless Tobacco: Never Comments:4 cigarettes a day Alcohol Use Standard Drinks/Week Comments Not Currently 0 (1 standard drink = 0.6 oz pur e alcohol) ocacsional use Sex and Gender Information Value Date Recorded Sex Assigned at Male 07/24/2021 9:19 AM EDT Legal Sex Male 7:21 PM EDT Gender Identity Male 07/24/2021 9:19 AM EDT Sexual Orientation Straight 07/24/2021 9: 19 AM EDT documented as of this encounter Plan of Treatment Not on file documented as of this encounter Visit Diagnoses Not on filedocumented in this encounter Additional Health Concerns Infection Onset Date Last Indicated Resolved Time CoV-Exposed Comment:Recent close contact documented in the Travel/Symptom Screening Form 09/27/2021 09/27/2021 10/12/2021 1:[address] documented as of this encounter Care Teams Rail Switchman Relationship Specialty Start Date End Date Pcp, Not Required [address] [place] [id number] PCP - General 05/31/20 09/26/20 Chyna Borden NP [address] [place] [phone] [email or web address] PCP - General Family Medicine 09/27/20 Amado Naranjo MD [address] [place] [phone] [email or web address] Ophthalmology 01/24/21 documented as of this encounter Additional Source Comments The information contained in this document represents components of the legal health record. It is not the complete legal health record.[facility]
--- OUTSIDE RECORDS SUMMARY | 2025-05-06 14:03 | XMS_ITS | Clinical Summary ---
Author Organization [employer] Address [address] [place] [address] Care Team Providers Care Technical Assoc Name Role Phone Unavailable Primary Care Provider [...] Panel 1977 SDOH Screening 1977 Sigmoidoscopy 1977 Disability Screening 1977 Alcohol/Substance Use Screening 1989 Family Planning (PISQ) 1992 Hepatitis C Screening 1995 Dental Prophylaxis 04/29/2013 10/29/2012 Dental Oral Exam 03/28/2015 09/27/2014, 08/28/2012 Dental X-Ray: Full Mouth 08/29/2015 08/28/2012 Dental X-Ray: Bitewings 09/28/2015 09/27/19 15, 08/28/2012 Hepatitis B Vaccines (2 of 3 - 19+ 3-dose series) 04/21/2023 03/24/2023 COVID-19 Vaccine (4 - 2023-2 5 season) 2024 02/06/2022, 01/30/2021, 01/09/2021 Tobacco Screening 03/30/2025 03/30/2024 Influenza Vaccine (#1) 2025 10/17/2020 DTaP/Tdap/Td Vaccines (2 - T d or Tdap) 02/01/2026 02/02/2016 Zoster Vaccines (1 of 2) 2027 RSV Patients and Patients Aged 60 years or older (1 - 1-dose 75+ series) 2052 Pneumococcal Vaccine: Pediatrics (0 to 5 Years) and At-Risk Patients (6 to 49) Years Aged Out 05/24/2020 No longer eligible b [...] patient's age to complete this topic Meningococcal B Vaccine Aged Out No l onger eligible based on patient's age to complete [...] Most Recently Relevant to Health Maintenance Insurance [facility] C3 DENTAL-[facility] MEDICAID STAND ADULT
--- OUTSIDE RECORDS SUMMARY | 2025-05-06 14:03 | XMS_ITS | Clinical Summary ---
Author Organization [facility] Address [address] [place] [address] Care Team Providers Care Claim Analyst Name Role Phone Chyna Borden NP Primary Care Provider [phone] Source Comments PLEASE NOTE, if this patient [...] 0.65 % nasal sprayIndication s:Epistaxis Place 1 Mcdonald into the nostril(s) as needed for congestion [...] to 30.9 in adult 03/24/2023 Overview (03/24/2023): [place] body weight: 160 lb 12.8 oz (72.9 [...] needed, sooner if issue or symptoms worsen Patient is in agreement with the above plan and understands the given recommendations. I was physically present for the E/M service provided. I have personally reviewed all the relevant radiographic images and laboratory results reported above. Last Resulted: 03/05/22 Assessment & Plan (05/28/2022 4:16 PM EDT): Continue to follow up with ENT Complex tear of medial menis cus of left knee as current injury 03/07/2022 Overview (03/07/2022): 07/2021 surgically repaired. Assessment & Plan (03/24/2023 11:53 PM EDT): Stable after surgery. Ileana-Schlatter's disease of both knees 022 Overview (03/07/2022): Right knee xray 05/2020 Diverticulosis of sigmoid colon 02/10/2022 Assessment & Plan (06/07/2023 1:53 PM EDT): Asymptomatic. Noted during colonoscopy. 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 Avoid picking. If worsens, consider evaluation by jewelry setter at [facility] (he works in [place]). Assessment & Plan (06/07/2023 1:48 PM EDT): Referred to ophthalmology. Temporarily refilled folic acid (FOLVITE) 1 mg tablet Take 1,000 mcg by mouth once daily methotrexate sodium 2.5 mg tablet TAKE 6 TABLETS BY MOUTH EVERY WEEK Pt to go to [facility] for vision changes. Assessment & Plan (03/24/2023 11:56 PM EDT): Stable. Managed by dermatology Empty nose syndrome 02/06/2022 Overview (02/06/2022): ASSESSMENT/PLAN: Vastly improved nasal mucosa after use of nasal saline with baby shampoo. Avoid picking. If worsens, consider evaluation by jewelry setter at [facility] (he works in [place]). Electronically signed by Akhil Alonso MD Hx of colonoscopy 02/06/2022 Overview (02/10/2022): [ ] 01/2027 colonoscopy Findings: Two sessile polyps were found in the transverse colon and cecum. The polyps were 2 to 3 mm in size. These polyps were removed with a cold snare. Resection and retrieval were complete. Multiple diverticula were found in the sigmoid colon. There was inflammation c/w diverticulitis. Impression: - Two 2 to 3 mm polyps in the transverse colon and in the cecum, removed with a cold snare. Resected and retrieved. - Diverticulosis in the sigmoid colon. Recommendation: - Await pathology results. - Repeat colonoscopy in 5 years for surveillance. Blister (nonthermal) of oral cavity, initial enc ounter 11/28/2020 Overview (12/01/2020): DDx Pemphigus. Spoke with dentist at [facility] Dr. Ivett Drew who feels pt oral lesion might be due to Pemphigus. Dentist referred patient [facility] oral pathology for eval. And treatment. Dr. [...] behavior of conjunctiva Overview (11/02/2020): Managed at [facility] [place]. Adam Assessment & Plan (03/24/2023 11:54 PM EDT): Sharmila. Followed by ophthalmology Central retinal vein occlusion of left eye ([facility]) 11/02/2020 Overview (06/07/2023): Was managed by [facility] ophthalmology who does not accept patient's health insurance. Previously managed by [facility] by Dr. Montoya. Referred to ophthalmology. Temporarily [...] (03/24/2023 11:50 PM EDT): Followed by ophthalmology. Stable. Hyperlipidemia 10/19/2020 Overview (03/07/2022): The 10-year ASCVD risk score ([place] SMOOTH Feliz., et al., 2013) is: 3.9% 10/19/20: The 10-year ASCVD risk score ([place] SMOOTH Feliz., et al., 2013) is: 7.8% - will [...] on with macular edema of left eye ([facility] V28) 10/15/2020 Apophysitis of patella 05/24/2020 Overview (05/24/2020): [...] the problem list and Referred to on-team child care coordinator for further assessment Lack of housing 10/17/2020 06/07/2023 Assessment & Plan (10/19/2020 3:13 PM EST): Patient is experiencing housing insecurity:? Problems with housing conditions Health impacts include: Other affects health goals PLAN:? Housing Insecurity Z59.1 added to the problem list and Referral to on- team Stamp Maker for further assessment Immunizations Immunization Administration Dates Next Due Flu, Multi Dose 0.5 ML 10/17/2020 Hep B, Adult/Adol (AJZKCUA-F-PZXLN/RECOMBIVAX-AD ULT) 03/24/2023 PNEUMOCOCCAL POLYSACCHARIDE PPV23 (Pneumovax 23) 05/24/2020 Pfizer COVID vaccine, aguilar VALDES cap, [...] 72 06/04/2023 11:11 AM EDT Temperature 36.8 C (98.3 F) 06/04/2023 11:11 AM EDT Respiratory Rate 18 06/04/2023 11:11 AM EDT Oxygen Saturation 97% 03/07/2022 11:47 AM EDT Inhaled Oxygen Concentration - - Weight 97.1 kg (214 lb) 06/04/2023 11:11 AM EDT Height 178 cm (5' 10.08 ) 03/24/2023 3:22 PM EDT Body Mass Index 30.64 03/24/2023 3:22 PM EDT Plan of Treatment Health Maintenance Due Date Last Done Comments Anxiety Screening 1977 Imm-Zoster, Recombinant (1 of 2) 1996 Tobacco Screening 05/07/2017 05/07/2016 Imm-Pneumococcal (2 of 2 - PCV) 05/24/2021 Tobacco Cessation Counseling (#1) 03/05/[address] Colonography 2022 FIT/gFOBT 2022 Fecal DNA 2022 Flexible Sigmoidoscopy 2022 Imm-Hepatitis B (2 of 3 - 19 + 3-dose series) 04/21/2023 03/24/2023 Annual Wellness (Adult): Ind icated (All Coverage) 03/24/2024 03/24/2023, 03/07/2022, 10/17/2020 [id number] ( season) 2024 02/06/2022, 01/30/2021, 01/09/2021 Hypertension Screening (#1) 06/03/2024 LTBI Screening (#1) 06/04/2024 06/04/2023, Syphilis Screening 06/04/2024 06/04/2023, 0 06/04/2023, 10/17/2020, Additional history exists Alcohol and Drug Screen 09/22/2024 03/24/20 23, 09/27/2021, 04/10/2021, Additional history exists Depression Annual Screen 09/22/2024 023, 09/27/2021, 10/17/2020 Imm-Influenza (#1) 2025 10/17/2020 Imm-DTaP/Tdap/Td (2 - Td or Tdap) [...] 12:13 PM EDT) T.PALLIDUM AB NEGATIVE NEGATIVE [facility] Comment: (NOTE) No antibodies to T. pallidum [...] NP LAB - BLOOD DRAW Final Result [facility] [address] [place] [address], [place] * QUANTIFERON_TB GOLD-PLUS (06/04/2023 12:13 PM EDT) Pathologist [facility] QUANTIFERON-TB GOLD NEGATIVE NEGATIVE [facility] Comment: (NOTE) Negative test result. M. tuberculosis complex infection unlikely. NIL 0.04 IU/mL [facility] MITOGEN-NIL >10.00 IU/mL [facility] TB1-NIL 0.00 IU/mL [facility] TB2-NIL <0.00 IU/mL [facility] Comment: (NOTE) The Nil tube value reflects [...] T-lymphocytes. For additional information, please refer to https://education.NatureBridge/faq/MVJ504 (This link is being provided for informational/ educational purposes only.) Blood Blood / Unknown 06/04/2023 1 2:13 PM EDT Chyna Borden NP LAB - BLOOD DRAW Final Result [facility] [id number] [place] [address], [place] * (ABNORMAL) LIPID PANEL (06/04/2023 12:13 PM EDT) Pathologist [facility] HDL 45 >39 mg/dL [facility] CHOLESTEROL 187 0 - 200 mg/dL [facility] TRIGLYCERIDE 62 0 - 150 mg/dL [facility] LDL 130(H) <130 mg/dL [facility] Comment: REFERENCE RANGE: Adult >= 18 years: - Desirable: <100 - Above desirable: 100-129 - Borderline high: 130-159 - High: 160-189 - Very High: >=190 Pediatric 2-17 years: - Acceptable: <110 - Borderline high: 110-129 - High: >=130 Reference ranges have not been established for patients that are less than 24 months of age. CARDIAC RISK RATIO 4.2 <5 [facility] NON HDL CHOL 142 mg/dL [facility] Comment: Reference Range: The non-HDL Cholesterol value should not exceed the desired LDL-C by more than 30 mg/dl. Processed and/or performed at [address] [place] [address] Blood Blood / Unknown 06/04/2023 1 2:13 PM EDT us Chyna Borden NP LAB - BLOOD DRAW Final Result [address] [address], * COMPREHENSIVE METABOLIC PANEL (06/04/2023 12:13 PM EDT) SODIUM 140 136 - 145 mmol/L [facility] POTASSIUM 4.5 3.6 - 5.1 mmol/L [facility] CHLORIDE 103 98 - 107 mmol/L [facility] CARBON DIOXIDE 27 22 - 32 mmol/L [facility] BUN 10 6 - 20 mg/dL [facility] CREATININE 1.02 0.6 - 1.3 mg/dL [facility] GLUCOSE 68 65 - 99 mg/dL [facility] ALBUMIN 4.4 3.5 - 5.2 g/dL [facility] TOTAL PROTEIN 7.9 6.1 - 8.1 g/dL [facility] CALCIUM 9.6 8.9 - 10.3 mg/dL [facility] ALK PHOS 89 40 - 130 U/L [facility] TOTAL BILIRUBIN 0.3 0.0 - 1.2 mg/dL [facility] AST 18 15 - 41 U/L [facility] ALT 15 10 - 50 U/L [facility] GLOBULIN 3.5 1.9 - 4.1 g/dL [facility] EGFR 92 60 - 128 mL/min/1.7 3m2 [facility] Comment: Estimated glomerular filtration rate calculated using the CKD-EPI refit equation. ANION GAP 10 3 - 17 mmol/L [facility] Comment:Processed and/or per formed at [address] [place] [address] Blood Blood / Unknown 06/04/2023 1 2:13 PM EDT us Chyna Borden NP LAB - BLOOD DRAW Final Result [facility] [address] [place] [address], [place] [phone] * HISTORIC COLONOSCOPY (11/21/2021 3:00 AM EST) 11/21/2021 3:00 AM EST us Chyna Borden NP PROCEDURES Final Result * HIV SCREENING TEST (10/17/2020 3:21 PM EST) HIV 1/2 AB/AG Negative Negative [facility] Comment:Processed and/or per formed at [address] Blood Blood / Unknown 10/17/2020 3 :21 PM EST us Kailey Brunson MD LAB - BLOOD DRAW Final Result Performing Organization Address City/[facility]/ZIP Co de Phone Number [address] [place] [address], [place] [phone] * Hep C ab with reflex to viral load (10/17/2020 3:21 PM EST) HCV ANTIBODY Negative Negative [facility] Comment:Processed and/or per formed at [facility], [address] [place] [address] Blood Blood / Unknown 10/17/2020 3 :21 PM EST us Kailey Brunson MD LAB - BLOOD DRAW Final Result Performing Organization Address City/[facility]/ZIP Co de Phone Number [facility] [address] [place] [address], [place] [phone] from Last 3 Months or Most Recently Relevant to Health Maintenance Insurance [place] [id number] SAFETY NET Care Teams Claim Analyst Relationship Specialty Start Date End Date Chyna Borden NP [address] [place] [phone] PCP - General AIX SYSTEM ADMINISTRATOR Nurse Practitioner 03/14/20
== END 2025-05-06 16:27 | disposition home or self-care (01) ==
LOC: HO.HOS 14:01
PROVIDERS: PCP Internal Medicine; Visit Provider Physician Assistant
DX: S83.511A Sprain of anterior cruciate ligament of right knee, initial encounter (principal)
CPT/HCPCS: 99204

== ENCOUNTER → 2025-05-06 14:00 | Outpatient (BNVA) | payer OTHER, SELFPAY | PROVIDERS: PCP Internal Medicine; Visit Provider Physician Assistant | DX: M25.561 Pain in right knee (principal); S83.511A Sprain of anterior cruciate ligament of right knee, initial encounter | CPT/HCPCS: 99202 ==

== ENCOUNTER 2025-05-16 12:09 | Outpatient (REF) | payer OTHER, SELFPAY ==
[2025-05-16 13:19] LABS: MANUAL DIFF FLAG NO
[2025-05-16 13:28] LABS: Hematocrit 39.6 % (42.0-52.0); Hemoglobin 12.7 g/dl (14.0-18.0); Imm Gran Abs Auto 0.05 X10*3/uL (0.00-0.03); Imm Gran Pct Auto 0.5 % (0.0-0.4); Lymphocytes Absolute Auto 3.0 X10*3/uL (1.2-4.9); Mean Corpuscular HGB Conc 32.1 g/dl (31.0-36.0); Mean Corpuscular Hemoglobin 27.3 pg (27.0-33.0); Mean Corpuscular Volume 85.0 fL (80.0-98.0); NRBC Abs Auto 0.000 X10*3/uL (0.0-0.012); NRBC Pct Auto 0.0 /100WBC (0.0-0.2); Platelet Count 420 X10*3/uL (160-400); Red Blood Count 4.66 X10*6/uL (4.60-5.80); White Blood Count 10.4 X10*3/uL (4.8-10.8)
--- OUTSIDE RECORDS SUMMARY | 2025-05-16 13:29 | XMS_ITS | Clinical Summary ---
Author Organization [employer] Address [address] [place] [address] Care Team Providers Care Tube Test Technician Name Role Phone Unavailable Primary Care Provider [...] Most Recently Relevant to Health Maintenance Insurance [facility] C3 DENTAL-[facility] MEDICAID STAND ADULT
--- OUTSIDE RECORDS SUMMARY | 2025-05-16 13:29 | XMS_ITS | Encounter Summary ---
Author Organization [facility] Address [address] [place] [address] Phone Care Team Providers Care Hospital Monitor Name Role Phone Pcp, Not Required Primary Care Provider Chyna James NP Primary Care Provider [phone] Amado Naranjo MD Unavailable +- [phone] Encounter Details Date Type Department Care Team (Late st Contact Info) Description 06/01/2020 Ophth Exam [facility] Emergency Department [address] [place] [address] Alana Nelson MD [email or web address] Social History Tobacco Use Types Packs/Day [...] documented as of this encounter Care Teams Hospital Monitor Relationship Specialty Start Date End Date Pcp, Not Required [address] [place] [address] PCP - General 05/31/20 09/26/20 Chyna Borden NP [address] [place] [address] [email or web address] PCP - General Family Medicine 09/27/20 Amado Naranjo MD [address] [place] [address] [email or web address] Ophthalmology 01/24/21 documented as of this encounter Additional Source Comments The information contained in this document represents components of the legal health record. It is not the complete legal health record.[facility]
--- OUTSIDE RECORDS SUMMARY | 2025-05-16 13:29 | XMS_ITS | Clinical Summary ---
Author Organization [facility] Address [address] [place] [address] Care Team Providers Care Burnisher Name Role Phone Josh Ratliff MD Primary Care Provider Unava ilable Allergies No known active allergies Medications Medication Sig Dispensed Refills Start Date End Date Status Nicotine Polacrilex (SR NICOTINE) 2 MG GumIndications:Tobacc o use disorder Take 2 mg by mouth every 2 hours as needed (smoking cessation). for six weeks 270 Each 0 10/25/2015 Active predniSONE (DELTASONE) 20 MG tablet Take 3 tablets once daily for 3 days, then take 2 tablets once daily for 3 days, then take 1 tablet once daily for 3 days. 18 Tab 0 05/07/2016 Active clobetasol (TEMOVATE) 0.05 % cream Apply 2-3 times daily to affected areas (moist skin) for no more than 3 weeks, then only on weekends 30 g 1 05/07/2016 Active Active Problems Problem Noted Date Tobacco use disorder 10/25/2015 Cocaine use 10/25/2015 Anxiety and depression Overview: In process of getting medical marijuana card Immunizations Name Administration Dates Next Due Tdap 02/02/2016 Family History Medical History Relation Name Comments Diabetes Father Hypertension Father Kidney Disease [Other] Father Stroke Uncle 2 maternal CA Breast Negative Hx CA Colon Negative Hx CA Ovarian Negative Hx CA Prostate Negative Hx IN Negative Hx Uterine Cancer Negative Hx Relation Name Status Comments Brother Alive healthy Father Alive DM, HTN, Hep C Maternal Grandfather Maternal Grandmother Mother Alive healthy Paternal Grandfather Paternal Grandmother Alive Sister 1 Alive healthy Sister 2 Alive healthy Son Alive 1998; Yannick; keith dolan Uncle 1 Uncle 2 Social History Tobacco Use Types Packs/Day Years Used Date Smoking Tobacco: Some Days Cigarettes 0.5 Tobacco Cessation:Ready to Q uit: Yes; Counseling Given: Yes Alcohol Use Standard Drinks/Week Comments Yes 0 (1 standard drink = 0.6 oz pur e alcohol) occasional Sex Assigned at Date Recorded Not on file Last Filed Vital Signs Vital Sign Reading Time Taken Comments Blood Pressure 132/78 05/07/2016 9:05 AM EDT Pulse 74 05/07/2016 9:05 AM EDT Temperature 36.7 C (98 F) 05/07/2016 9:05 AM EDT Respiratory Rate 20 02/02/2016 3:59 PM EDT Oxygen Saturation 97% 10/25/2015 2:25 PM EST Inhaled Oxygen Concentration - - Weight 117 kg (258 lb) 05/07/2016 9:05 AM EDT Height 180.3 cm (5' 11 ) 05/07/2016 9:05 AM EDT Body Mass Index 35.98 05/07/2016 9:05 AM EDT Plan of Treatment Health Maintenance Due Date Last Done Comments Covid-19 Vaccine (#1) 01/17/1976 BASELINE HEALTH EXAM 40-64 2017 04/24/2016, TOBACCO CHECK/ADVISE 05/07/2018 05/07/2016, 10/25/19 16 CHOLESTEROL SCREENING 04/24/2021 04/24/2016 BMI CHECK/ADVISE 09/22/2024 02/02/2016 DEPRESSION SCREENING/FOLLOWUP 09/22/2024 02/02/2016, 02/02/2016 SOCIAL NEEDS SCREENING 09/22/2024 INFLUENZA (#1) 2025 DTAP/TDAP/TD (2 - Td or Tdap) 02/01/2026 02/02/2016 PNEUMOCOCCAL VACCINE FOR HIG H RISK PATIENTS (#1) 2042 Care Teams Burnisher Relationship Specialty Start Date End Date Josh Ratliff MD PCP - General Internal Medicine 02/16/20
--- OUTSIDE RECORDS SUMMARY | 2025-05-16 13:29 | XMS_ITS | Clinical Summary ---
Author Organization [facility] Address [address] [place] [address] Care Team Providers Care Health And Social Care Teacher Name Role Phone Chyna Borden NP Primary Care Provider [phone] Source Comments PLEASE NOTE, if this patient [...] 0.65 % nasal sprayIndication s:Epistaxis Place 1 [place] into the nostril(s) as needed for congestion [...] to 30.9 in adult 03/24/2023 Overview (03/24/2023): Quail body weight: 160 lb 12.8 oz (72.9 [...] PM EDT): Asymptomatic. Noted during colonoscopy. Pemphigoid ([facility]) 02/06/2022 Overview (02/06/2022): ASSESSMENT/PLAN: Vastly improved nasal mucosa after use of nasal saline with baby shampoo. Avoid picking. If worsens, consider evaluation by sample body builder at [facility] (he works in [place]). Assessment & Plan (06/07/2023 1:48 PM EDT): Referred to ophthalmology. Temporarily refilled folic acid (FOLVITE) 1 mg tablet Take 1,000 mcg by mouth once daily methotrexate sodium 2.5 mg tablet TAKE 6 TABLETS BY MOUTH EVERY WEEK Pt to go to [facility] ER for vision changes. Assessment & Plan (03/24/2023 11:56 PM EDT): Stable. Managed by dermatology Empty nose syndrome 02/06/2022 Overview (02/06/2022): ASSESSMENT/PLAN: Vastly improved nasal mucosa after use of nasal saline with baby shampoo. Avoid picking. If worsens, consider evaluation by sample body builder at [facility] (he works in [place]). Electronically signed by Akhil Alonso MD Hx [...] (12/01/2020): DDx Pemphigus. Spoke with dentist at [facility] Dr. Ivett Drew who feels pt oral lesion might be due to Pemphigus. Dentist referred patient to [facility] oral pathology for eval. And [...] behavior of conjunctiva Overview (11/02/2020): Managed at [facility] by Dr. Adam Assessment & Plan (03/24/2023 11:54 PM EDT): Sharmila. Followed by ophthalmology Central retinal vein occlusion of left eye ([facility]) 11/02/2020 Overview (06/07/2023): Was managed by [facility] ophthalmology who does not accept patient's health insurance. Previously managed by [facility] by Dr. Montoya. Referred to ophthalmology. Temporarily [...] Overview (03/07/2022): The 10-year ASCVD risk score ([place] SMOOTH Feliz., et al., 2013) is: 3.9% 10/19/20: The 10-year ASCVD risk score ([place] SMOOTH Feliz., et al., 2013) is: 7.8% [...] on with macular edema of left eye ([facility] V28) 10/15/2020 Apophysitis of patella 05/24/2020 Overview [...] the problem list and Referred to on-team geriatric personal care aide for further assessment Lack of housing 10/17/2020 06/07/2023 Assessment & Plan (10/19/2020 3:13 PM EST): Patient is experiencing housing insecurity:? Problems with housing conditions Health impacts include: Other affects health goals PLAN:? Housing Insecurity Z59.1 added to the problem list and Referral to on- team Gas Meter Repairer for further assessment Immunizations Immunization Administration Dates Next Due Flu, Multi Dose 0.5 ML 10/17/2020 Hep B, Adult/Adol ([id number]/RECOMBIVAX-AD ULT) 03/24/2023 PNEUMOCOCCAL POLYSACCHARIDE PPV23 (Pneumovax 23) [...] icated (All Coverage) 03/24/2024 03/24/2023, 03/07/2022, 10/17/2020 [id number] ( season) 2024 02/06/2022, 01/30/2021, 01/09/2021 Hypertension [...] 12:13 PM EDT) T.PALLIDUM AB NEGATIVE NEGATIVE [facility] Comment: (NOTE) No antibodies to T. pallidum [...] NP LAB - BLOOD DRAW Final Result [facility] [address] [place] [address], [place] * QUANTIFERON_TB GOLD-PLUS (06/04/2023 12:13 PM EDT) Pathologist [facility] QUANTIFERON-TB GOLD NEGATIVE NEGATIVE [facility] Comment: (NOTE) Negative test result. M. tuberculosis complex infection unlikely. NIL 0.04 IU/mL [facility] MITOGEN-NIL >10.00 IU/mL [facility] TB1-NIL 0.00 IU/mL [facility] TB2-NIL <0.00 IU/mL [facility] Comment: (NOTE) The Nil tube value reflects [...] T-lymphocytes. For additional information, please refer to https://education.[employer]/faq/NQK521 (This link is being provided for informational/ educational purposes only.) Blood Blood / Unknown 06/04/2023 1 2:13 PM EDT Chyna Borden NP LAB - BLOOD DRAW Final Result [facility] [id number] [place] [address], [place] * (ABNORMAL) LIPID PANEL (06/04/2023 12:13 PM EDT) Pathologist [facility] HDL 45 >39 mg/dL [facility] CHOLESTEROL 187 0 - 200 mg/dL [facility] TRIGLYCERIDE 62 0 - 150 mg/dL [facility] LDL 130(H) <130 mg/dL [facility] Comment: REFERENCE RANGE: Adult >= 18 years: - Desirable: <100 - Above desirable: 100-129 - Borderline high: 130-159 - High: 160-189 - Very High: >=190 Pediatric 2-17 years: - Acceptable: <110 - Borderline high: 110-129 - High: >=130 Reference ranges have not been established for patients that are less than 24 months of age. CARDIAC RISK RATIO 4.2 <5 [facility] NON HDL CHOL 142 mg/dL [facility] Comment: Reference Range: The non-HDL Cholesterol value should not exceed the desired LDL-C by more than 30 mg/dl. Processed and/or performed at [address] [place] [address] Blood Blood / Unknown 06/04/2023 1 2:13 PM EDT us Chyna Borden NP LAB - BLOOD DRAW Final Result [address] [address], * COMPREHENSIVE METABOLIC PANEL (06/04/2023 12:13 PM EDT) SODIUM 140 136 - 145 mmol/L [facility] POTASSIUM 4.5 3.6 - 5.1 mmol/L [facility] CHLORIDE 103 98 - 107 mmol/L [facility] CARBON DIOXIDE 27 22 - 32 mmol/L [facility] BUN 10 6 - 20 mg/dL [facility] CREATININE 1.02 0.6 - 1.3 mg/dL [facility] GLUCOSE 68 65 - 99 mg/dL [facility] ALBUMIN 4.4 3.5 - 5.2 g/dL [facility] TOTAL PROTEIN 7.9 6.1 - 8.1 g/dL [facility] CALCIUM 9.6 8.9 - 10.3 mg/dL [facility] ALK PHOS 89 40 - 130 U/L [facility] TOTAL BILIRUBIN 0.3 0.0 - 1.2 mg/dL [facility] AST 18 15 - 41 U/L [facility] ALT 15 10 - 50 U/L [facility] GLOBULIN 3.5 1.9 - 4.1 g/dL [facility] EGFR 92 60 - 128 mL/min/1.7 3m2 [facility] Comment: Estimated glomerular filtration rate calculated using the CKD-EPI refit equation. ANION GAP 10 3 - 17 mmol/L [facility] Comment:Processed and/or per formed at [address] [place] [address] Blood Blood / Unknown 06/04/2023 1 2:13 PM EDT us Chyna Borden NP LAB - BLOOD DRAW Final Result [facility] [address] [place] [address], [place] [phone] * HISTORIC COLONOSCOPY (11/21/2021 3:00 AM EST) 11/21/2021 3:00 AM EST us Chyna Borden NP PROCEDURES Final Result * HIV SCREENING TEST (10/17/2020 3:21 PM EST) HIV 1/2 AB/AG Negative Negative [facility] Comment:Processed and/or per formed at [address] Blood Blood / Unknown 10/17/2020 3 :21 PM EST us Kailey Brunson MD LAB - BLOOD DRAW Final Result Performing Organization Address City/[facility]/ZIP Co de Phone Number [address] [place] [address], [place] [phone] * Hep C ab with reflex to viral load (10/17/2020 3:21 PM EST) HCV ANTIBODY Negative Negative [facility] Comment:Processed and/or per formed at [facility], [address] [place] [address] Blood Blood / Unknown 10/17/2020 3 :21 PM EST us Kailey Brunson MD LAB - BLOOD DRAW Final Result Performing Organization Address City/[facility]/ZIP Co de Phone Number [facility] [address] [place] [address], [place] [phone] from Last 3 Months or Most Recently Relevant to Health Maintenance Insurance [place] [id number] [employer]AF[employer] NET Care Teams Health And Social Care Teacher Relationship Specialty Start Date End Date Chyna Borden NP [address] [place] [id number] PCP - General TRIMMER CLIMBER Nurse Practitioner 03/14/20
[2025-05-16 13:44] LABS: Alanine Aminotransferase 17 U/L (0-40); Albumin Level 4.4 g/dL (3.5-5.0); Alkaline Phosphatase 113 U/L (39-117); Anion Gap 11 (12-20); Aspartate Amino Transferase 28 U/L (5-37); Blood Urea Nitrogen 10 mg/dL (9-16); Calcium 9.4 mg/dL (8.4-10.2); Carbon Dioxide 26 mmol/L (22-29); Chloride 106 mmol/L (96-108); Cholesterol 152 mg/dL (<200); Estimated Glomerular Filt Rate > 60; HDL Cholesterol 42 mg/dL (>40); Potassium 4.1 mmol/L (3.3-5.1); Sodium 139 mmol/L (135-145); Total Protein 8.3 g/dL (6.5-8.0); Triglycerides 81 mg/dL (<150); Uric Acid 6.8 mg/dL (3.4-7.0)
== END 2025-05-16 12:10 | disposition home or self-care (01) ==
LOC: HO.10HDL 12:09
PROVIDERS: Visit Provider Internal Medicine
DX: I10 Essential (primary) hypertension (principal); E78.00 Pure hypercholesterolemia, unspecified; M10.9 Gout, unspecified; Z68.31 Body mass index [BMI] 31.0-31.9, adult
CPT/HCPCS: 36415; 80053; 80061; 84550; 85025

== ENCOUNTER → 2025-06-01 06:45 | Day surgery (SDC) | payer OTHER, SELFPAY ==
--- OUTSIDE RECORDS SUMMARY | 2025-05-09 09:45 | XMS_ITS | Encounter Summary ---
Author Organization [facility] Address [address] [place] [address] Phone Care Team Providers Care Research Nurse Name Role Phone Pcp, Not Required Primary Care Provider Chyna James NP Primary Care Provider [phone] Amado Naranjo MD Unavailable [phone]- [phone] Encounter Details Date Type Department Care Team (Late st Contact Info) Description 06/01/2020 Ophth Exam [facility] Emergency Department [address] [place] [address] Alana Nelson MD [email or web address] Social History Tobacco Use Types Packs/Day Years [...] documented as of this encounter Care Teams Research Nurse Relationship Specialty Start Date End Date Pcp, Not Required [address] [place] [address] PCP - General 05/31/20 09/26/20 Chyna Borden NP [address] [place] [address] [email or web address] PCP - General Family Medicine 09/27/20 Amado Naranjo MD [address] [place] [id number] [email or web address] Ophthalmology 01/24/21 documented as of this encounter Additional Source Comments The information contained in this document represents components of the legal health record. It is not the complete legal health record.[facility]
--- OUTSIDE RECORDS SUMMARY | 2025-05-09 09:45 | XMS_ITS | Clinical Summary ---
Author Organization [facility] Address [address] [place] [address] Care Team Providers Care Delivery Motorcycle Driver Name Role Phone Chyna Borden NP Primary Care Provider Source Comments PLEASE NOTE, if this patient [...] 0.65 % nasal sprayIndication s:Epistaxis Place 1 Gamaliel into the nostril(s) as needed for congestion [...] to 30.9 in adult 03/24/2023 Overview (03/24/2023): [place] body weight: 160 lb 12.8 oz (72.9 [...] PM EDT): Asymptomatic. Noted during colonoscopy. 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 Avoid picking. If worsens, consider evaluation by silver wrapper at [facility] (he works in [place]). Assessment & Plan (06/07/2023 1:48 PM EDT): Referred to ophthalmology. Temporarily refilled folic acid (FOLVITE) 1 mg tablet Take 1,000 mcg by mouth once daily methotrexate sodium 2.5 mg tablet TAKE 6 TABLETS BY MOUTH EVERY WEEK Pt to go to [facility] for vision changes. Assessment & Plan (03/24/2023 11:56 PM EDT): Stable. Managed by dermatology Empty nose syndrome 02/06/2022 Overview (02/06/2022): ASSESSMENT/PLAN: Vastly improved nasal mucosa after use of nasal saline with baby shampoo. Avoid picking. If worsens, consider evaluation by silver wrapper at [facility] (he works in [place]). Electronically signed by Akhil Alonso MD Hx [...] (12/01/2020): DDx Pemphigus. Spoke with dentist at [facility] Dr. Ivett Drew who feels pt oral lesion might be due to Pemphigus. Dentist referred patient to [facility] oral pathology for eval. And treatment. Dr. [...] behavior of conjunctiva Overview (11/02/2020): Managed at [facility] by Dr. Adam Assessment & Plan (03/24/2023 11:54 PM EDT): Sharmila. Followed by ophthalmology Central retinal vein occlusion of left eye ([facility]) 11/02/2020 Overview (06/07/2023): Was managed by [facility] ophthalmology who does not accept patient's health insurance. Previously managed by [facility] by Dr. Montoya. Referred to ophthalmology. Temporarily [...] Overview (03/07/2022): The 10-year ASCVD risk score ([place] SMOOTH Feliz., et al., 2013) is: 3.9% 10/19/20: The 10-year ASCVD risk score ([place] SMOOTH Feliz., et al., 2013) is: 7.8% [...] on with macular edema of left eye ([facility] V28) 10/15/2020 Apophysitis of patella 05/24/2020 Overview [...] the problem list and Referred to on-team clinical manager home care for further assessment Lack of housing 10/17/2020 06/07/2023 Assessment & Plan (10/19/2020 3:13 PM EST): Patient is experiencing housing insecurity:? Problems with housing conditions Health impacts include: Other affects health goals PLAN:? Housing Insecurity Z59.1 added to the problem list and Referral to on- team Toy Assembler for further assessment Immunizations Immunization Administration Dates Next Due Flu, Multi Dose 0.5 ML 10/17/2020 Hep B, Adult/Adol (RYOECUR-J-RFPBY/RECOMBIVAX-AD ULT) 03/24/2023 PNEUMOCOCCAL POLYSACCHARIDE PPV23 (Pneumovax 23) [...] icated (All Coverage) 03/24/2024 03/24/2023, 03/07/2022, 10/17/2020 [id number] ( season) 2024 02/06/2022, 01/30/2021, 01/09/2021 Hypertension [...] 12:13 PM EDT) T.PALLIDUM AB NEGATIVE NEGATIVE [facility] [place] Comment: (NOTE) No antibodies to T. pallidum [...] NP LAB - BLOOD DRAW Final Result [facility] [place] [address] [place] [address], [place] * QUANTIFERON_TB GOLD-PLUS (06/04/2023 12:13 PM EDT) Pathologist [facility] QUANTIFERON-TB GOLD NEGATIVE NEGATIVE [facility] [place] Comment: (NOTE) Negative test result. M. tuberculosis complex infection unlikely. NIL 0.04 IU/mL [facility] [place] MITOGEN-NIL >10.00 IU/mL [facility] [place] TB1-NIL 0.00 IU/mL [facility] [place] TB2-NIL <0.00 IU/mL [facility] [place] Comment: (NOTE) The Nil tube value reflects [...] T-lymphocytes. For additional information, please refer to https://education.Prefundia/faq/PSS209 (This link is being provided for informational/ educational purposes only.) Blood Blood / Unknown 06/04/2023 1 2:13 PM EDT Chyna Borden NP LAB - BLOOD DRAW Final Result [facility] [id number] [place] [address], [place] * (ABNORMAL) LIPID PANEL (06/04/2023 12:13 PM EDT) Pathologist [facility] HDL 45 >39 mg/dL [facility] CHOLESTEROL 187 0 - 200 mg/dL [facility] TRIGLYCERIDE 62 0 - 150 mg/dL [facility] LDL 130(H) <130 mg/dL [facility] Comment: REFERENCE RANGE: Adult >= 18 years: - Desirable: <100 - Above desirable: 100-129 - Borderline high: 130-159 - High: 160-189 - Very High: >=190 Pediatric 2-17 years: - Acceptable: <110 - Borderline high: 110-129 - High: >=130 Reference ranges have not been established for patients that are less than 24 months of age. CARDIAC RISK RATIO 4.2 <5 [facility] NON HDL CHOL 142 mg/dL [facility] Comment: Reference Range: The non-HDL Cholesterol value should not exceed the desired LDL-C by more than 30 mg/dl. Processed and/or performed at [address] [place] [address] Blood Blood / Unknown 06/04/2023 1 2:13 PM EDT us Chyna Borden NP LAB - BLOOD DRAW Final Result [address] [address], * COMPREHENSIVE METABOLIC PANEL (06/04/2023 12:13 PM EDT) SODIUM 140 136 - 145 mmol/L [facility] POTASSIUM 4.5 3.6 - 5.1 mmol/L [facility] CHLORIDE 103 98 - 107 mmol/L [facility] CARBON DIOXIDE 27 22 - 32 mmol/L [facility] BUN 10 6 - 20 mg/dL [facility] CREATININE 1.02 0.6 - 1.3 mg/dL [facility] GLUCOSE 68 65 - 99 mg/dL [facility] ALBUMIN 4.4 3.5 - 5.2 g/dL [facility] TOTAL PROTEIN 7.9 6.1 - 8.1 g/dL [facility] CALCIUM 9.6 8.9 - 10.3 mg/dL [facility] ALK PHOS 89 40 - 130 U/L [facility] TOTAL BILIRUBIN 0.3 0.0 - 1.2 mg/dL [facility] AST 18 15 - 41 U/L [facility] ALT 15 10 - 50 U/L [facility] GLOBULIN 3.5 1.9 - 4.1 g/dL [facility] EGFR 92 60 - 128 mL/min/1.7 3m2 [facility] Comment: Estimated glomerular filtration rate calculated using the CKD-EPI refit equation. ANION GAP 10 3 - 17 mmol/L [facility] Comment:Processed and/or per formed at [address] [place] [address] Blood Blood / Unknown 06/04/2023 1 2:13 PM EDT us Chyna Borden NP LAB - BLOOD DRAW Final Result [facility] [address] [place] [address], [place] [phone] * HISTORIC COLONOSCOPY (11/21/2021 3:00 AM EST) 11/21/2021 3:00 AM EST us Chyna Borden NP PROCEDURES Final Result * HIV SCREENING TEST (10/17/2020 3:21 PM EST) HIV 1/2 AB/AG Negative Negative [facility] Comment:Processed and/or per formed at [address] Blood Blood / Unknown 10/17/2020 3 :21 PM EST us Kailey Brunson MD LAB - BLOOD DRAW Final Result Performing Organization Address City/[facility]/ZIP Co de Phone Number [address] [address], [place] [phone] * Hep C ab with reflex to viral load (10/17/2020 3:21 PM EST) HCV ANTIBODY Negative Negative [facility] Comment:Processed and/or per formed at [facility], [address] [place] [address] Blood Blood / Unknown 10/17/2020 3 :21 PM EST us Kailey Brunson MD LAB - BLOOD DRAW Final Result Performing Organization Address City/[facility]/ZIP Co de Phone Number [facility] [address] [place] [address], [place] [phone] from Last 3 Months or Most Recently Relevant to Health Maintenance Insurance [place] [id number] SAFETY NET Care Teams Delivery Motorcycle Driver Relationship Specialty Start Date End Date Chyna Borden NP [address] [place] [address] PCP - General NURSING COORDINATOR Nurse Practitioner 03/14/20
--- OUTSIDE RECORDS SUMMARY | 2025-05-09 09:45 | XMS_ITS | Clinical Summary ---
Author Organization [employer] Address [address] [place] [address] Care Team Providers Care Store Sales Leader Name Role Phone Unavailable Primary Care Provider [...] Most Recently Relevant to Health Maintenance Insurance [facility] C3 DENTAL-[facility] MEDICAID STAND ADULT
[2025-05-17 10:27] VITALS: BMI 31.2
--- NOTE | 2025-05-17 13:03 | HO.ANESPROP2 ---
HPI - Anesthesia Eval Consult details Narrative: 49yo M for Right ACL Allograft, 06/01/25 Medically optimized per PCP Left eye retinal vein occlusion - receives anti VEGF eye injections PMFSH Active Problems Active Problems: All Active Problems Complete tear of anterior cruciate ligament of right knee (Acute) Past Medical History Medical History (Updated 05/17/25 @ 09:52 by Gabrielle Love RN) Pemphigoid Arthritis Depression Hypercholesterolemia Hypertension Autoimmune deficiency syndrome Surgical History Surgical History (Updated 05/17/25 @ 09:52 by Gabrielle Love RN) Hx of biopsy Hx of colonoscopy Hx of left knee surgery Social History Social History (Updated 05/06/25 @ 14:14 by Nishi Jay [facility]) Are you a primary post acute care nurse practitioner to a significant other at home: No Do you presently have visiting nurse or other home services: No Patient Tobacco Use Status: Former Tobacco user Use of substances other than those prescribed or required for medical reasons: Yes Substance Use Frequency: Daily Have you been hit, kicked, punched, or otherwise hurt by someone within the past year? 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 Allergies Allergy/AdvReac Type Severity Reaction Status Date / Time No Known Allergies Allergy Verified 05/06/25 14:17 Home Medications ?Medication ?Instructions ?Recorded ?Confirmed ?Last Taken ?Type atorvastatin 10 mg tablet 10 mg PO DAILY 05/06/25 05/17/25 Unknown History losartan 50 mg tablet 100 mg PO DAILY 05/06/25 05/17/25 Unknown History acetaminophen 325 mg tablet 650 mg PO Q6H PRN Pain 05/17/25 05/17/25 Unknown History multivitamin 1 tab PO QAM 05/17/25 05/17/25 Unknown History turmeric 400 mg capsule 400 mg PO DAILY 05/17/25 05/17/25 Unknown History Exam Height,Weight and Vital Signs: Height 6 ft Weight 104.326 kg Pertinent Lab Results Pertinent Lab Results: Laboratory Tests 05/16/25 12:15 WBC 10.4 Hgb 12.7 L Hct 39.6 L Plt Count 420 H Sodium 139 Potassium 4.1 Chloride 106 Carbon Dioxide 26 BUN 10 Creatinine 0.89 Assessment and Plan Assessment Anesthesia Assessment: Chart Reviewed
[2025-06-01 06:56] VITALS: BP 139/94; PULSE 72; RESP 17; TEMP 36.4; O2SAT 95; BMI 31.4
[2025-06-01] MEDS: Lactated Ringers 1,000 ML 100 ML IVCONT (07:14)
--- NOTE | 2025-06-01 07:28 | MHC.SHP ---
Pre-Procedural Eval Section A - 24 Hr Update-Section A only Date of Service: 06/01/25 The patient is an INPATIENT: No Changes since office visit: No Cold of Flu in the past 2 weeks, No New Medical Problems, No Changes in Medication and No Patient answered all questions The patient has been examined within 24 hours of the surgical procedure. The History & Physical has been completed within 30 days and I have reviewed it.: Yes Section B - Complete if H&P > 30 days Chief Complaint: Sprain of anterior cruciate ligament of right knee Allergies: Allergies Allergy/AdvReac Type Severity Reaction Status Date / Time No Known Allergies Allergy Verified 05/06/25 14:17 Plan I have reviewed the history and physical and performed a pertinent physical examination on my patient. No changes have occurred unless specified. Time Spent With Patient Time: Total time managing care of this patient today ____ minutes.
--- NOTE | 2025-06-01 08:14 | PC.NURSE ---
pt cancelled by dr tapia no need for surgery at this time pt d/c and iv removed
== END | disposition home or self-care (01) ==
LOC: HO.SSS 06:46
PROVIDERS: PCP Internal Medicine; Visit Provider Orthopaedic Surgery
DX: S83.511A Sprain of anterior cruciate ligament of right knee, initial encounter (principal); Z53.8 Procedure and treatment not carried out for other reasons; X58.XXXA Exposure to other specified factors, initial encounter; Y93.9 Activity, unspecified; Y92.9 Unspecified place or not applicable; Y99.9 Unspecified external cause status; D89.89 Other specified disorders involving the immune mechanism, not elsewhere classified; I10 Essential (primary) hypertension; E78.00 Pure hypercholesterolemia, unspecified; L12.8 Other pemphigoid; M19.90 Unspecified osteoarthritis, unspecified site; Z79.899 Other long term (current) drug therapy; Z87.891 Personal history of nicotine dependence; Z98.890 Other specified postprocedural states
CPT/HCPCS: J0131; J0690

== ENCOUNTER 2025-06-02 08:27 | Outpatient (REF) | payer OTHER, SELFPAY ==
--- OUTSIDE RECORDS SUMMARY | 2025-06-03 08:57 | XMS_ITS | Clinical Summary ---
Author Organization [facility] Address [address] [place] [phone] Phone Care Team Providers Care Industrial Truck Driver Name Role Phone Chyna Borden NP Primary Care Provider [phone] Amado Naranjo MD Unavailable [phone] Allergies No known active allergies Medications methotrexate 2.5 MG Oral tablet Take 2.5 mg by mouth 2 (two) times a day. 1 Active folic acid (FOLVITE) 1 MG tablet Take 1,000 mcg by mouth. 1 Active sodium chloride (OCEAN) 0.65 % nasal spray 1 spray by Nasal route. 1 Active docusate sodium (COLACE) 100 MG capsule Take 1 capsule (100 mg total) by mouth 3 (three) times a day as needed for constipation. 30 capsule 1 Active HYDROcodone-zamzam taminophen (NORCO) 5-325 mg per tablet 1 tab every 4-6 hours as needed for severe breakthrough pain. For acute orthopedic surgical condition. Partial fill okay. 10 tablet 1 Active Additional Information Patient not taking.Reported on 10/10/2021 aspirin 81 MG EC tablet Take 1 tablet (81 mg total) by mouth daily for 14 days. 14 tablet 1 Active Active Problems No known active problems Immunizations Immunization Administration Dates Next Due COVID-19 (Pre-07/14) Pfizer Vaccine, mRNA, PF ,01/09/2021 Social History Tobacco Use Types Packs/Day Years Used Date Smoking Tobacco: Every Day Cigarettes Smokeless Tobacco: Never Comments:1-2 cigarettes a da y/ cutting back recently Alcohol Use Standard Drinks/Week Comments Not Currently 0 (1 standard drink = 0.6 oz pur e alcohol) ocacsional use Education Answer Date Recorded Are you interested in more education? Not on angelo e 01/17/2023 Are you concerned about learning? Not on file 01/17/2023 No 01/17/2023 No 01/17/2023 Digital Access Answer Date Recorded No 02/18/2023 No 02/18/2023 Reliable internet access at home? Not on file 02/18/2023 Device with a working camera? Not on file Sex and Gender Information Value Date Recorded Sex Assigned at Male 07/24/2021 9:19 AM EDT Legal Sex Male 7:21 PM EDT Gender Identity Male 07/24/2021 9:19 AM EDT Sexual Orientation Straight 07/24/2021 9: 19 AM EDT Last Filed Vital Signs Vital Sign Reading Time Taken Comments Blood Pressure 121/71 11/21/2021 1:59 PM EST Pulse 69 11/21/2021 1:59 PM EST Temperature 36.4 C (97.6 F) 11/21/2021 1:40 PM EST Respiratory Rate 20 11/21/2021 1:59 PM EST Oxygen Saturation 97% 11/21/2021 1:59 PM EST Inhaled Oxygen Concentration - - Weight 103.4 kg (228 lb) 10/10/2021 10:18 AM EST Height 182.9 cm (6') 10/10/2021 10:18 AM EST Body Mass Index 30.92 10/10/2021 10:18 AM EST Plan of Treatment Health Maintenance Due Date Last Done Comments DEPRESSION SCREENING 1989 SMOKING Hx and SMOKELESS TOBACCO SCREENING 1990 PNEUMOCOCCAL VACCINES (0-49 years) (2 of 2 - PCV) 05/24/2021 05/24/2020 COLOGUARD 2022 FIT TEST 2022 FOBT 2022 SIGMOIDOSCOPY 2022 VIRTUAL COLONOSCOPY 2022 INFLUENZA VACCINE (#1) 2025 10/17/2020 COVID-19 VACCINE ( - season) 2025 02/06/2022, 01/30/2021, 01/09/2021 Adult Td,Tdap Booster 02/01/2026 02/02/2016 LIPID PANEL 06/04/2028 06/04/2023, 01/21, 02/08/2022, Additional history exists COLONOSCOPY 11/22/2031 11/21/2021 COLORECTAL CANCER SCREENING 11/22/2031 HEPATITIS C SCREENING Completed 10/17/2020, 021 HIV ONE-TIME SCREENING (18-65 YEARS) Completed 10/17/2020 HEPATITIS A VACCINES Aged Out No long er eligible based on patient's age to complete this topic HIB VACCINES Aged Out No longer eligi ble based on patient's age to complete this topic MENINGOCOCCAL VACCINES (ACWY) Aged Out No longer eligible based on patient's age to complete this topic MENINGOCOCCAL VACCINES (B) Aged Out N o longer eligible based on patient's age to complete this topic Medical Devices Not on file Procedures Procedure Name Priority Date/Time Associated Diagnosis Comments LIPID PANEL Routine 06/04/2023 12:54 PM EDT ENDOSCOPY, COLON 11/21/2021 11:3 7 AM EST HEPATITIS C ANTIBODY, QUALITATIVE Routine 10/17/2020 3:21 PM EST from Last 3 Months or Most Recently Relevant to Health Maintenance Results * (ABNORMAL) Lipid panel (06/04/2023 12:54 PM EDT) HDL 45 >39 mg/dL [facility] CHOLESTEROL 187 0 - 200 mg/dL [facility] TRIGLYCERIDES 62 0 - 150 mg/dL [facility] LDL 130(H) <130 mg/dL [facility] Comment: REFERENCE RANGE: Adult >= 18 years: - Desirable: <100 - Above desirable: 100-129 - Borderline high: 130-159 - High: 160-189 - Very High: >=190 Pediatric 2-17 years: - Acceptable: <110 - Borderline high: 110-129 - High: >=130 Reference ranges have not been established for patients that are less than 24 months of age. CARDIAC RISK RATIO 4.2 <5 [facility] NON-HDL CHOLESTEROL 142 mg/dL [facility] Comment:Reference Range: The non-HDL Cholesterol value should not exceed the desired LDL-C by more than 30 mg/dl. 06/04/2023 12:5 4 PM EDT 06/04/2023 5:25 PM EDT Chyna Borden STRIPING MACHINE OPERATOR LAB BLOOD ORDERABLES Final Res [address] [place] [id number], [facility] [phone] * ENDOSCOPY, COLON (11/21/2021 11:37 AM EST) 11/21/2021 11:3 7 AM EST Narrative Transcriptions Piero Canales MD - 11/21/2021 11:37 AM EST Endoscopy Center Patient Name: Wellington Marshall Procedure Date: 11/21/2021 11:37 AM Date of : 1975 Gender: Male Procedure: Colonoscopy Providers: Piero Canales MD Referring MD: Chyna Borden (Referring MD) Indications: Screening for colorectal malignant neoplasm, Abnormal CT of the GI tract Medicines: Fentanyl 100 micrograms IV, Midazolam 4 mg IV Complications: No immediate complications. Procedure: After obtaining informed consent, the endoscope was passed under direct vision. Throughout the procedure, the patient's blood pressure, pulse, and oxygen saturations were monitored continuously. The Colonoscope was introduced through the anus and advanced to the the terminal ileum. The colonoscopy was performed without difficulty. The patient tolerated the procedure well. The quality of the bowel preparation was good. Findings: Two sessile polyps were found in [...] Repeat colonoscopy in 5 years for surveillance. - antibiotics for 10 days Procedure Code(s): --- Professional --- 40038, Colonoscopy, flexible; with removal of tumor(s), polyp(s), or other lesion(s) by snare technique Diagnosis Code(s): --- Professional --- R93.3, Abnormal findings on diagnostic imaging of other parts of digestive tract K57.30, Diverticulosis of large intestine without perforation or abscess without bleeding K63.5, Polyp of colon Z12.11, Encounter for screening for malignant neoplasm of colon CPT copyright 2020 [employer]. All rights reserved. The codes documented in this report are preliminary and upon project superintendent review may be revised to meet current compliance requirements. Attending Participation: I was personally present throughout the entire procedure. I was present from the first injection of medications for sedation and continuously for the administration and monitoring of sedation. The patient's sedation level was moderate. The patients post-sedation status at the end of the procedure was stable. Piero Canales MD, [id number] 11/21/2021 1:36:50 PM Number of Addenda: 0 Note Initiated On: 11/21/2021 11:37 AM Estimated Blood Loss: Estimated blood loss: none. Chyna Borden NP GI PROCEDURE ORDERABLES Final Result * Hepatitis C antibody, qualitative (10/17/2020 3:21 PM EST) HCV ANTIBODY Negative Negative [facility] 10/17/2020 3:21 PM EST 10/17/2020 8:57 PM EST Kailey Brunson MD LAB BLOOD ORDERABLES Final Resu lt [address] [address], [facility] [phone] from Last 3 Months or Most Recently Relevant to Health Maintenance Insurance HEALTH SAFETY NET PARTIAL Member Subscriber Plan / Payer (Ef fective 2023-Present) Name:Wellington Marshall Relation to Subscriber:Self Name:Wellington Marshall Payer ID:Not on file Group ID:Not on file Type:Medicaid [address] [place] PCP [employer] Address: [place] [address] HEALTH SAFETY NET PARTIAL WELLSENSE NON NSPG PCP [employer] HEALTH SAFETY NET PARTIAL HEALTH SAFETY NET PARTIAL HEALTH SAFETY NET PARTIAL WELLSENSE NON NSPG PCP [employer] NET PARTIAL HEALTH SAFETY NET PARTIAL WELLSENSE NON [place] PCP [employer] NET PARTIAL Member Subscriber Plan / Payer (Ef fective 2023-Present) Name:Wellington Marshall Relation to Subscriber:Self Name:Wellington Marshall Payer ID:Not on file Group ID:Not on file Type:Medicaid Address: [address] PCP [employer] WELLSENSE NON [place] PCP [employer] NET PARTIAL SAFETY NET PARTIAL Care Teams Industrial Truck Driver Relationship Specialty Start Date End Date Chyna Borden NP [address] [place] [id number] [email or web address] PCP - General Family Medicine 09/27/20 Amado Naranjo MD [facility] [place] [address] [email or web address] Ophthalmology 01/24/21 Additional Source Comments The information contained in this document represents components of the legal health record. It is not the complete legal health record.[facility]
--- OUTSIDE RECORDS SUMMARY | 2025-06-03 08:57 | XMS_ITS | Encounter Summary ---
Author Organization [facility] Address [address] [place] [address] Phone Care Team Providers Care Seamer Name Role Phone Chyna Borden NP Primary Care Provider [phone] Amado Naranjo MD Unavailable +- [phone] Encounter Details Date Type Department Care Team (Late st Contact Info) Description 05/10/2021 Ancillary Orders [facility] Diagnostic Radiology [address] [place] [address] Halie Montes MD [address] [place] [address] [email or web address] Metal foreign body in upper extremity, unspecified laterality, subsequent encounter Social History Tobacco Use Types Packs/Day Years [...] on file documented as of this encounter Results * XR Orbits Series (05/14/2021 4:12 PM EDT) Anatomical Region Laterality Modality Face Radiographic Deborah ging 05/14/2021 4:15 PM EDT Impressions 05/14/2021 4:16 PM EDT No evidence of metallic orbital foreign body. Narrative 05/14/2021 4:16 PM EDT PROCEDURE: XR ORBITS SERIES CLINICAL HISTORY: Possible metal in right eye; pre-MRI TECHNIQUE: 2 views of the orbits COMPARISON: None FINDINGS: There is no evidence of metallic orbital foreign body. The visualized paranasal sinuses are normally aerated. Bony and soft tissue structures are otherwise grossly unremarkable. Procedure Note Lesia Lewis MD - 05/14/2021 PROCEDURE: XR ORBITS SERIES CLINICAL HISTORY: Possible metal in right eye; pre-MRI TECHNIQUE: 2 views of the orbits COMPARISON: None FINDINGS: There is no evidence of metallic orbital foreign body. Thevisualized paranasal sinuses are normally aerated. Bony and soft tissuestructures are otherwise grossly unremarkable. IMPRESSION: No evidence of metallic orbital foreign body. Halie Montes MD IMG XR HEAD AND SHUNT SERIES Fi nal Result documented in this encounter Visit Diagnoses Diagnosis Metal foreign body in upper extremity, unspecified laterality, subsequent encounter Metal foreign body in upper extremity, unspecified laterality, subsequent encounter documented in this encounter Additional Health Concerns Infection Onset Date Last Indicated Resolved Time CoV-Exposed Comment:Recent close contact documented in the Travel/Symptom Screening Form 09/27/2021 09/27/2021 10/12/2021 1:[address] documented as of this encounter Care Teams Seamer Relationship Specialty Start Date End Date Chyna Borden NP [address] [place] [address] [email or web address] PCP - General Family Medicine 09/27/20 Amado Naranjo MD [address] [place] [address] [email or web address] [email or web address] Ophthalmology 01/24/21 documented as of this encounter Additional Source Comments The information contained in this document represents components of the legal health record. It is not the complete legal health record.[facility]
--- OUTSIDE RECORDS SUMMARY | 2025-06-03 08:57 | XMS_ITS | Encounter Summary ---
Author Organization [facility] Address [address] [place] [address] Phone Care Team Providers Care Marine Oiler Name Role Phone Chyna Borden NP Primary Care Provider [phone] Amado Naranjo MD Unavailable [phone]- [phone] Encounter Details Date Type Department Care Team (Late st Contact Info) Description 05/04/2021 Procedure Pass [facility] [address] [facility], 4th [place] [address] Social History Tobacco Use Types Packs/Day Years [...] documented as of this encounter Care Teams Marine Oiler Relationship Specialty Start Date End Date Chyna Borden NP [address] [place], [place] [address] [place] [address] [email or web address] PCP - General Family Medicine 09/27/20 Amado Naranjo MD [address] [place] [address] [email or web address] Ophthalmology 01/24/21 documented as of this encounter Additional Source Comments The information contained in this document represents components of the legal health record. It is not the complete legal health record.[facility]
--- OUTSIDE RECORDS SUMMARY | 2025-06-03 08:57 | XMS_ITS | Encounter Summary ---
Author Organization [facility] Address [address] [place] [address] Phone Care Team Providers Care Tire Layer Name Role Phone Chyna Borden NP Primary Care Provider [phone] Amado Naranjo MD Unavailable [phone]- [phone] Encounter Details Date Type Department Care Team (Late st Contact Info) Description 10/10/2020 Telephone [facility] [address] [facility] 12th [place] [address] Brad Montoya MD [address] [place] [address] [email or web address] Social History Tobacco Use Types Packs/Day [...] documented as of this encounter Care Teams Tire Layer Relationship Specialty Start Date End Date Chyna Borden NP [address] [place] [address] [email or web address] PCP - General Family Medicine 09/27/20 Amado Naranjo MD [address] [place] [address] [email or web address] Ophthalmology 01/24/21 documented as of this encounter Additional Source Comments The information contained in this document represents components of the legal health record. It is not the complete legal health record.[facility]
--- OUTSIDE RECORDS SUMMARY | 2025-06-03 08:57 | XMS_ITS | Encounter Summary ---
Author Organization [facility] Address [address] [place] [address] Phone Care Team Providers Care Photo Offset Printer Name Role Phone Chyna Borden NP Primary Care Provider [phone] Amado Naranjo MD Unavailable [phone]- [phone] Encounter Details Date Type Department Care Team (Late st Contact Info) Description 05/10/2021 Ancillary Orders CLINICAL SUPPORT SPECIALIST [facility] [address] [place] [address] Halie Montes MD [address] [place] [address] Social History Tobacco Use Types Packs/Day Years [...] documented as of this encounter Care Teams Photo Offset Printer Relationship Specialty Start Date End Date Chyna Borden NP [address] [place] [address] [email or web address] PCP - General Family Medicine 09/27/20 Amado Naranjo MD [address] [place] [address] [email or web address] [email or web address] Ophthalmology 01/24/21 documented as of this encounter Additional Source Comments The information contained in this document represents components of the legal health record. It is not the complete legal health record.[facility]
--- OUTSIDE RECORDS SUMMARY | 2025-06-03 08:57 | XMS_ITS | Encounter Summary ---
Author Organization [facility] Address [address] [place] [address] Phone Care Team Providers Care Tie Sawyer Name Role Phone Pcp, Not Required Primary Care Provider Chyna James NP Primary Care Provider [phone] Amado Naranjo MD Unavailable +- [phone] Encounter Details Date Type Department Care Team (Late st Contact Info) Description 05/31/2020 Ophth Exam [facility] [address] [place] [address] Gladys Alberts RN [phone] [place] [address] [email or web address] Social History Tobacco Use Types Packs/Day Years Used Date Smoking Tobacco: Every Day Smokeless Tobacco: Current Alcohol Use Standard Drinks/Week Comments Not Currently [...] documented as of this encounter Care Teams Tie Sawyer Relationship Specialty Start Date End Date Pcp, Not Required [address] [place] [address] PCP - General 05/31/20 09/26/20 Chyna Borden NP [address] [place] [address] [email or web address] PCP - General Family Medicine 09/27/20 Amado Naranjo MD [address] [place] [address] [email or web address] Ophthalmology 01/24/21 documented as of this encounter Additional Source Comments The information contained in this document represents components of the legal health record. It is not the complete legal health record.[facility]
--- OUTSIDE RECORDS SUMMARY | 2025-06-03 08:57 | XMS_ITS | Encounter Summary ---
Author Organization [facility] Address [address] [place] [address] Phone Care Team Providers Care Boilermaker Central Steam Plant Name Role Phone Chyna Borden FORM TAMPER Primary Care Provider [phone] Amado Naranjo MD Unavailable [phone]- [phone] Encounter Details Date Type Department Care Team (Late st Contact Info) Description 02/08/2022 Transcribe Orders [facility] [address] [place] [address] Chyna Borden NP [address] [place] [address] [email or web address] Social History Tobacco Use Types Packs/Day Years [...] Diagnoses Not on filedocumented in this encounter Care Teams Boilermaker Central Steam Plant Relationship Specialty Start Date End Date Chyna Borden NP [address] [place] [address] [email or web address] PCP - General Family Medicine 09/27/20 Amado Naranjo MD [address] [place] [address] [email or web address] Ophthalmology 01/24/21 documented as of this encounter Additional Source Comments The information contained in this document represents components of the legal health record. It is not the complete legal health record.[facility]
--- OUTSIDE RECORDS SUMMARY | 2025-06-03 08:57 | XMS_ITS | Clinical Summary ---
Author Organization [employer] Address [address] [facility] 7t [place] [address] Care Team Providers Care Senior Staff Consultant Name Role Phone Unavailable Primary Care Provider [...] 3 - 19+ 3-dose series) 04/21/2023 03/24/2023 Tobacco Screening 03/30/2025 03/30/2024 COVID-19 Vaccine (4 - 2024-2 6 season) 2025 02/06/2022, 01/30/2021, 01/09/2021 Influenza Vaccine (#1) 2025 10/17/2020 DTaP/Tdap/Td Vaccines [...] Most Recently Relevant to Health Maintenance Insurance [facility] C3 DENTAL-[facility] MEDICAID STAND ADULT
--- OUTSIDE RECORDS SUMMARY | 2025-06-03 08:57 | XMS_ITS | Encounter Summary ---
Author Organization [facility] Address [address] [place] [address] Phone Care Team Providers Care Patternmaker Helper Name Role Phone Chyna Borden NP Primary Care Provider [phone] Amado Naranjo MD Unavailable +- [phone] Encounter Details Date Type Department Care Team ([facility] st Contact Info) Description 12/29/2020 Transcribe Orders [facility] Specimen Processing [address] [place] [address] Betzaida [email or web address] Social History Tobacco Use Types Packs/Day Years [...] documented as of this encounter Care Teams Patternmaker Helper Relationship Specialty Start Date End Date Chyna Borden NP [address] [place] [address] [email or web address] PCP - General Family Medicine 09/27/20 Amado Naranjo MD [address] [place] [address] [email or web address] Ophthalmology 01/24/21 documented as of this encounter Additional Source Comments The information contained in this document represents components of the legal health record. It is not the complete legal health record.[facility]
--- OUTSIDE RECORDS SUMMARY | 2025-06-03 08:57 | XMS_ITS | Clinical Summary ---
Author Organization [facility] Address [address] [place] [address] Care Team Providers Care Supercharge Repair Supervisor Name Role Phone Chyna Borden NP Primary [...] 0.65 % nasal sprayIndication s:Epistaxis Place 1 [place] into the nostril(s) as needed for congestion [...] to 30.9 in adult 03/24/2023 Overview (03/24/2023): [place] body weight: 160 lb 12.8 oz (72.9 [...] (03/24/2023 11:53 PM EDT): Stable after surgery. [place]-Schlatter's disease of both knees 022 Overview (03/07/2022): Right knee xray 05/2020 Diverticulosis of sigmoid colon 02/10/2022 Assessment & Plan (06/07/2023 1:53 PM EDT): Asymptomatic. Noted during colonoscopy. 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 Avoid picking. If worsens, consider evaluation by dynamite shooter at [facility] (he works in [place]). Assessment & Plan (06/07/2023 1:48 PM EDT): Referred to ophthalmology. Temporarily refilled folic acid (FOLVITE) 1 mg tablet Take 1,000 mcg by mouth once daily methotrexate sodium 2.5 mg tablet TAKE 6 TABLETS BY MOUTH EVERY WEEK Pt to go to [facility] for vision changes. Assessment & Plan (03/24/2023 11:56 PM EDT): Stable. Managed by dermatology Empty nose syndrome 02/06/2022 Overview (02/06/2022): ASSESSMENT/PLAN: Vastly improved nasal mucosa after use of nasal saline with baby shampoo. Avoid picking. If worsens, consider evaluation by dynamite shooter at [facility] (he works in [place]). Electronically signed by Akhil Alonso MD Hx [...] (12/01/2020): DDx Pemphigus. Spoke with dentist at [facility] Dr. Ivett Drew who feels pt oral lesion might be due to Pemphigus. Dentist referred patient to [facility] oral pathology for eval. And [...] Overview (11/02/2020): Managed at [facility] by Dr. Adam Assessment & Plan (03/24/2023 11:54 PM EDT): Sharmila. Followed by ophthalmology Central retinal vein occlusion of left eye ([facility] V[facility]) 11/02/2020 Overview (06/07/2023): Was managed by [facility] ophthalmology who does not accept patient's health insurance. Previously managed by [facility] by Dr. Montoya. Referred to ophthalmology. Temporarily [...] Overview (03/07/2022): The 10-year ASCVD risk score (Irvine SMOOTH Feliz., et al., 2013) is: 3.9% 10/19/20: The 10-year ASCVD risk score (Irvine SMOOTH Feliz., et al., 2013) is: 7.8% [...] on with macular edema of left eye ([facility] V28) 10/15/2020 Apophysitis of patella 05/24/2020 [...] the problem list and Referred to on-team transitional care liaison for further assessment Lack of housing 10/17/2020 06/07/2023 Assessment & Plan (10/19/2020 3:13 PM EST): Patient is experiencing housing insecurity:? Problems with housing conditions Health impacts include: Other affects health goals PLAN:? Housing Insecurity Z59.1 added to the problem list and Referral to on- team Thread Roller for further assessment Immunizations Immunization Administration Dates Next Due Flu, Multi Dose 0.5 ML 10/17/2020 Hep B, Adult/Adol (FPZFERY-O-MHLET/RECOMBIVAX-AD ULT) 03/24/2023 PNEUMOCOCCAL POLYSACCHARIDE PPV23 (Pneumovax 23) [...] Imm-Pneumococcal (2 of 2 - PCV) 05/24/2021 0 Tobacco Cessation Counseling (#1) 03/05/[address] Colonography 2022 FIT/gFOBT 2022 Fecal DNA 2022 Flexible Sigmoidoscopy 2022 Imm-Hepatitis B (2 of 3 - 19 + 3-dose series) 04/21/2023 03/24/2023 Annual Wellness (Adult): Ind icated (All Coverage) 03/24/2024 03/24/2023, 03/07/2022, 10/17/2020 Hypertension Screening (#1) 06/03/2024 LTBI Screening (#1) 06/04/2024 06/04/2023, Syphilis Screening 06/04/2024 06/04/2023, 0 06/04/2023, 10/17/2020, Additional history exists Alcohol and Drug Screen 09/22/2024 03/24/20 23, 09/27/2021, 04/10/2021, Additional history exists Depression Annual Screen 09/22/2024 023, 09/27/2021, 10/17/2020 [id number] ( season) 2025 02/06/2022, 01/30/2021, 01/09/2021 Imm-Influenza (#1) 2025 10/17/2020 Imm-DTaP/Tdap/Td (2 - [...] 12:13 PM EDT) T.PALLIDUM AB NEGATIVE NEGATIVE [facility] Comment: (NOTE) No antibodies to T. pallidum [...] NP LAB - BLOOD DRAW Final Result [facility] [address] [place] [address], [place] * QUANTIFERON_TB GOLD-PLUS (06/04/2023 12:13 PM EDT) Pathologist [facility] QUANTIFERON-TB GOLD NEGATIVE NEGATIVE [employer] [facility] Comment: (NOTE) Negative test result. M. tuberculosis complex infection unlikely. NIL 0.04 IU/mL [employer] [facility] MITOGEN-NIL >10.00 IU/mL [employer] [facility] TB1-NIL 0.00 IU/mL [employer] [facility] TB2-NIL <0.00 IU/mL [employer] [facility] Comment: (NOTE) The Nil tube value reflects [...] T-lymphocytes. For additional information, please refer to https://education.[employer]/faq/HGU481 (This link is being provided for informational/ educational purposes only.) Blood Blood / Unknown 06/04/2023 1 2:13 PM EDT Chyna Borden NP LAB - BLOOD DRAW Final Result [employer] [facility] [place] [address] [place] [address], [place] * (ABNORMAL) LIPID PANEL (06/04/2023 12:13 PM EDT) Pathologist [facility] HDL 45 >39 mg/dL [facility] CHOLESTEROL 187 0 - 200 mg/dL [facility] TRIGLYCERIDE 62 0 - 150 mg/dL [facility] LDL 130(H) <130 mg/dL [facility] Comment: REFERENCE RANGE: Adult >= 18 years: - Desirable: <100 - Above desirable: 100-129 - Borderline high: 130-159 - High: 160-189 - Very High: >=190 Pediatric 2-17 years: - Acceptable: <110 - Borderline high: 110-129 - High: >=130 Reference ranges have not been established for patients that are less than 24 months of age. CARDIAC RISK RATIO 4.2 <5 [facility] NON HDL CHOL 142 mg/dL [facility] Comment: Reference Range: The non-HDL Cholesterol value should not exceed the desired LDL-C by more than 30 mg/dl. Processed and/or performed at [address] [place] [address] Blood Blood / Unknown 06/04/2023 1 2:13 PM EDT us Chyna Borden NP LAB - BLOOD DRAW Final Result [address] [address], * COMPREHENSIVE METABOLIC PANEL (06/04/2023 12:13 PM EDT) SODIUM 140 136 - 145 mmol/L [facility] POTASSIUM 4.5 3.6 - 5.1 mmol/L [facility] CHLORIDE 103 98 - 107 mmol/L [facility] CARBON DIOXIDE 27 22 - 32 mmol/L [facility] BUN 10 6 - 20 mg/dL [facility] CREATININE 1.02 0.6 - 1.3 mg/dL [facility] GLUCOSE 68 65 - 99 mg/dL [facility] ALBUMIN 4.4 3.5 - 5.2 g/dL [facility] TOTAL PROTEIN 7.9 6.1 - 8.1 g/dL [facility] CALCIUM 9.6 8.9 - 10.3 mg/dL [facility] ALK PHOS 89 40 - 130 U/L [facility] TOTAL BILIRUBIN 0.3 0.0 - 1.2 mg/dL [facility] AST 18 15 - 41 U/L [facility] ALT 15 10 - 50 U/L [facility] GLOBULIN 3.5 1.9 - 4.1 g/dL [facility] EGFR 92 60 - 128 mL/min/1.7 3m2 [facility] Comment: Estimated glomerular filtration rate calculated using the CKD-EPI refit equation. ANION GAP 10 3 - 17 mmol/L [facility] Comment:Processed and/or per formed at [address] [place] [address] Blood Blood / Unknown 06/04/2023 1 2:13 PM EDT us Chyna Borden NP LAB - BLOOD DRAW Final Result [facility] [address] [place] [address], [place] [phone] * HISTORIC COLONOSCOPY (11/21/2021 3:00 AM EST) 11/21/2021 3:00 AM EST us Chyna Borden NP PROCEDURES Final Result * HIV SCREENING TEST (10/17/2020 3:21 PM EST) HIV 1/2 AB/AG Negative Negative [facility] Comment:Processed and/or per formed at [address] Blood Blood / Unknown 10/17/2020 3 :21 PM EST us Kailey Brunson MD LAB - BLOOD DRAW Final Result Performing Organization Address City/[facility]/ZIP Co de Phone Number [address] [place] [address], [place] [phone] * Hep C ab with reflex to viral load (10/17/2020 3:21 PM EST) HCV ANTIBODY Negative Negative [facility] Comment:Processed and/or per formed at [facility], [address] [place] [address] Blood Blood / Unknown 10/17/2020 3 :21 PM EST us Kailey Brunson MD LAB - BLOOD DRAW Final Result Performing Organization Address City/[facility]/ZIP Co de Phone Number [facility] [address] [place] [address], [place] [phone] from Last 3 Months or Most Recently Relevant to Health Maintenance Insurance [place] [id number] [employer] Care Teams Supercharge Repair Supervisor Relationship Specialty Start Date End Date Chyna Borden NP [address] [place] [address] PCP - General EAP SPECIALIST Nurse Practitioner 03/14/20
--- OUTSIDE RECORDS SUMMARY | 2025-06-03 08:57 | XMS_ITS | Encounter Summary ---
Author Organization [facility] Address [address] [place] [address] Phone Care Team Providers Care Press Operator Automatic Name Role Phone Chyna Borden NP Primary Care Provider [phone] Amado Naranjo MD Unavailable [phone]- [phone] Encounter Details Date Type Department Care Team (Late st Contact Info) Description 10/18/2020 Procedure Pass [facility] PERIOP DEPT [address] [place] [address] Social History Tobacco Use Types Packs/Day Years [...] documented as of this encounter Care Teams Press Operator Automatic Relationship Specialty Start Date End Date Chyna Borden NP [address] [place], [place] [address] [place] [address] [email or web address] PCP - General Family Medicine 09/27/20 Amado Naranjo MD [address] [place] [address] [email or web address] Ophthalmology 01/24/21 documented as of this encounter Additional Source Comments The information contained in this document represents components of the legal health record. It is not the complete legal health record.[facility]
--- OUTSIDE RECORDS SUMMARY | 2025-06-03 08:57 | XMS_ITS | Encounter Summary ---
Author Organization [facility] Address [address] [place] [address] Phone Care Team Providers Care Ground Intelligence Officer Name Role Phone Chyna Borden NP Primary Care Provider [phone] Amado Naranjo MD Unavailable +- [phone] Encounter Details Date Type Department Care Team ([facility] st Contact Info) Description 02/07/2022 Procedure Pass [facility] [address] [facility] 4th [place] [address] Social History Tobacco Use Types Packs/Day Years [...] on filedocumented in this encounter Care Teams Ground Intelligence Officer Relationship Specialty Start Date End Date Chyna Borden NP [address] [place], [place] [address] [address] [email or web address] PCP - General Family Medicine 09/27/20 Amado Naranjo MD [facility] [address] [address] [email or web address] Ophthalmology 01/24/21 documented as of this encounter Additional Source Comments The information contained in this document represents components of the legal health record. It is not the complete legal health record.[facility]
--- OUTSIDE RECORDS SUMMARY | 2025-06-03 08:57 | XMS_ITS | Encounter Summary ---
Author Organization [facility] Address [address] [place] [address] Phone Care Team Providers Care Occupational Nurse Name Role Phone Chyna Borden [employer] Primary Care Provider Amado Naranjo MD Unavailable [phone] Encounter Details Date Type Department Care Team (Late st Contact Info) Description 06/04/2023 Transcribe Orders [facility] Molly [facility] [address] [place] [address] Chyna Borden, [employer] [address] [place] [address] [email or web address] Social History Tobacco Use Types Packs/Day Years [...] on filedocumented in this encounter Care Teams Occupational Nurse Relationship Specialty Start Date End Date Chyna Borden NP [address] [place] [address] [email or web address] PCP - General Family Medicine 09/27/20 Amado Naranjo MD [address] [place] [phone] [email or web address] Ophthalmology 01/24/21 documented as of this encounter Additional Source Comments The information contained in this document represents components of the legal health record. It is not the complete legal health record.[facility]
--- OUTSIDE RECORDS SUMMARY | 2025-06-03 08:57 | XMS_ITS | Encounter Summary ---
Author Organization [facility] Address [address] [place] [address] [address] [place] [address] Phone Care Team Providers Care Shovel Engineer Name Role Phone Chyna Borden NP Primary Care Provider [phone] Amado Naranjo MD Unavailable [phone]- [phone] Reason for Referral * MRI/CAT Scan - Closed Specialty Diagnoses / Procedures [facility] Referred To Contact Radiology Diagnoses Acute nonintractable headache, unspecified headache type Procedures MRI Brain Chyna Borden NP Phone: tel: fax: mailto:[email or web address] Referral ID Status Reason Start Date Expiration Date Visits Re quested Visits Authorized [id number] Closed 02/06/2022 02/06/2023 1 1 Encounter Details Date Type Department Care Team (Latest Contact Info) Description 02/07/2022 Transcribe Orders [facility] MRI at [facility] [place] [address] [place] [address] Chyna Borden NP [address] [place] [address] [email or web address] Acute nonintractable headache, unspecified headache type (Primary Dx) Social History Tobacco Use Types Packs/Day Years [...] documented as of this encounter Results * MRI BRAIN WITHOUT CONTRAST (02/21/2022 6:43 AM EDT) Anatomical Region Laterality Modality Head Magnetic Resonan ce 02/23/2022 6:29 PM EDT Impressions 02/23/2022 6:31 PM EDT Normal noncontrast MR appearance of the brain. Minimal mucosal thickening in the paranasal sinuses. Narrative 02/23/2022 6:31 PM EDT MRI BRAIN WITHOUT CONTRAST HISTORY: 46 years old Male patient with Outside Radiology Order; acute nonintractable headache, unspecified headache type TECHNIQUE: Multi-sequence, multi-planar MRI of the brain was performed without intravenous contrast. COMPARISON: None FINDINGS: The pituitary and suprasellar regions appear within normal limits. The pineal region is unremarkable. There is no cerebellar tonsillar ectopia or callosal dysgenesis. The major vascular flow voids are present. There is minimal mucosal thickening in the paranasal sinuses. Orbital contents are grossly normal for technique. No intrinsic foci of signal abnormality are detected within the brain parenchyma on T1, T2, FLAIR, gradient echo or diffusion weighted images. There is no hydrocephalus, extra- axial collection, mass lesion or mass effect. Procedure Note Juan Renteria MD - 02/23/2022 MRI BRAIN WITHOUT CONTRAST HISTORY: 46 years old Male patient with Outside Radiology Order; acutenonintractable headache, unspecified headache type TECHNIQUE: Multi-sequence, multi-planar MRI of the brain was performed withoutintravenous contrast. COMPARISON: None FINDINGS: The pituitary and suprasellar regions appear within normal limits. Thepineal region is unremarkable. There is no cerebellar tonsillar ectopia orcallosal dysgenesis. The major vascular flow voids are present. There isminimal mucosal thickening in the paranasal sinuses. Orbital contents aregrossly normal for technique. No intrinsic foci of signal abnormality aredetected within the brain parenchyma on T1, T2, FLAIR, gradient echo ordiffusion weighted images. There is no hydrocephalus, extra-axialcollection, mass lesion or mass effect. IMPRESSION: Normal noncontrast MR appearance of the brain. Minimal mucosal thickeningin the paranasal sinuses. Chyna Borden NP IMG MR HEAD/NECK Final Result documented in this encounter Visit Diagnoses Diagnosis Acute nonintractable headache, unspecified headache type- Primary Acute nonintractable headache, unspecified headache type documented in this encounter Care Teams Shovel Engineer Relationship Specialty Start Date End Date Chyna Borden NP [address] [place] [address] [email or web address] PCP - General Family Medicine 09/27/20 Amado Naranjo MD [address] [place] [address] [email or web address] Ophthalmology 01/24/21 documented as of this encounter Additional Source Comments The information contained in this document represents components of the legal health record. It is not the complete legal health record.[facility]
--- OUTSIDE RECORDS SUMMARY | 2025-06-03 08:57 | XMS_ITS | Encounter Summary ---
Author Organization [facility] Address [address] [place] [address] Phone Care Team Providers Care Placement Director Name Role Phone Chyna Borden NP Primary Care Provider [phone] Amado Naranjo MD Unavailable [phone]- [phone] Encounter Details Date Type Department Care Team ([facility] st Contact Info) Description 11/21/[address] [facility] Endoscopy Department [address] [place] [phone] Social History Tobacco Use Types Packs/Day Years [...] on filedocumented in this encounter Care Teams Placement Director Relationship Specialty Start Date End Date Chyna Borden NP [address] [facility] [place] [address] [email or web address] PCP - General Family Medicine 09/27/20 Amado Naranjo MD [address] [place] [address] [email or web address] Ophthalmology 01/24/21 documented as of this encounter Additional Source Comments The information contained in this document represents components of the legal health record. It is not the complete legal health record.[facility]
--- OUTSIDE RECORDS SUMMARY | 2025-06-03 08:57 | XMS_ITS | Encounter Summary ---
Author Organization [facility] Address [address] [place] [address] Phone Care Team Providers Care Crushing Machine Operator Name Role Phone Pcp, Not Required Primary Care Provider Unavaila Chyna Miramontes VENDOR MANAGEMENT ASSOCIATE Primary Care Provider Amado Naranjo MD Unavailable [phone] Encounter Details Date Type Department Care Team (Late st Contact Info) Description 06/20/2020 Ancillary Orders [facility] Diagnostic Radiology - [facility] [address] [place] [address] Chyna Borden NP [address] [place] [address] [email or web address] Chronic pain of both knees Social History Tobacco Use Types Packs/Day Years [...] as of this encounter Results * XR KNEE 4 OR MORE VIEWS (RIGHT) (06/20/2020 4:49 PM EDT) Anatomical Region Laterality Modality Knee Right Radiographic Deborah ging 06/20/2020 5:22 PM EDT Impressions 06/20/2020 5:23 PM EDT Findings suggestive of Ielana-Schlatter disease bilaterally. Narrative 06/20/2020 5:23 PM EDT HISTORY: Bilateral knee pain PRIOR STUDIES: No similar prior studies FINDINGS: AP, lateral and sunrise views of each knee, and a Killian view The tibial tubercles looks bulky and slightly fragmented bilaterally with a little overlying soft tissue swelling on each side. Otherwise the knees look normal. Procedure Note Alison Valero [facility] - 06/20/2020 HISTORY: Bilateral knee pain PRIOR STUDIES: No similar prior studies FINDINGS: AP, lateral and sunrise views of each knee, and a Rosenbergview The tibial tubercles looks bulky and slightly fragmented bilaterally witha little overlying soft tissue swelling on each side. Otherwise the kneeslook normal. IMPRESSION: Findings suggestive of [place]-Schlatter disease bilaterally. Chyna Borden NP IMG XR LOWER EXTREMITY Final R esult * XR KNEE 4 OR MORE VIEWS (LEFT) (06/20/2020 4:49 PM EDT) Anatomical Region Laterality Modality Knee Left Radiographic Deborah ging 06/20/2020 5:22 PM EDT Impressions 06/20/2020 5:23 PM EDT Findings suggestive of Ileana-Schlatter disease bilaterally. Narrative 06/20/2020 5:23 PM EDT HISTORY: Bilateral knee pain PRIOR STUDIES: No similar prior studies FINDINGS: AP, lateral and sunrise views of each knee, and a Killian view The tibial tubercles looks bulky and slightly fragmented bilaterally with a little overlying soft tissue swelling on each side. Otherwise the knees look normal. Procedure Note Alison Valero [facility] - 06/20/2020 HISTORY: Bilateral knee pain PRIOR STUDIES: No similar prior studies FINDINGS: AP, lateral and sunrise views of each knee, and a Rosenbergview The tibial tubercles looks bulky and slightly fragmented bilaterally witha little overlying soft tissue swelling on each side. Otherwise the kneeslook normal. IMPRESSION: Findings suggestive of Ileana-Schlatter disease bilaterally. Chyna Borden VENDOR MANAGEMENT ASSOCIATE IMG XR LOWER EXTREMITY Final R esult documented in this encounter Visit Diagnoses Diagnosis Chronic pain of both knees Chronic pain of both knees Chronic pain of both knees documented in this encounter Additional Health Concerns Infection Onset Date Last Indicated Resolved Time CoV-Exposed Comment:Recent close contact documented in the Travel/Symptom Screening Form 09/27/2021 09/27/2021 10/12/2021 1:[address] documented as of this encounter Care Teams Crushing Machine Operator Relationship Specialty Start Date End Date Pcp, Not Required [address] [place] [address] PCP - General 05/31/20 09/26/20 Chyna Borden NP [address] [place] [address] [email or web address] PCP - General Family Medicine 09/27/20 Amado Naranjo MD [address] [place] [address] [email or web address] Ophthalmology 01/24/21 documented as of this encounter Additional Source Comments The information contained in this document represents components of the legal health record. It is not the complete legal health record.[facility]
--- OUTSIDE RECORDS SUMMARY | 2025-06-03 08:57 | XMS_ITS | Encounter Summary ---
Author Organization [facility] Address [address] [place] [address] Phone Care Team Providers Care Gaming Floor Supervisor Name Role Phone Chyna Borden NP Primary Care Provider [phone] Amado Naranjo MD Unavailable [phone]- [phone] Encounter Details Date Type Department Care Team (Late st Contact Info) Description 11/01/2020 Procedure Pass [facility] DEPT [address] [place] [address] Social History Tobacco Use Types Packs/Day Years [...] documented as of this encounter Care Teams Gaming Floor Supervisor Relationship Specialty Start Date End Date Chyna Borden NP [address] [place], [place] [address] [place] [address] [email or web address] PCP - General Family Medicine 09/27/20 Amado Naranjo MD [address] [place] [address] [email or web address] Ophthalmology 01/24/21 documented as of this encounter Additional Source Comments The information contained in this document represents components of the legal health record. It is not the complete legal health record.[facility]
--- OUTSIDE RECORDS SUMMARY | 2025-06-03 08:57 | XMS_ITS | Encounter Summary ---
Author Organization [facility] Address [address] [place] [address] Phone Care Team Providers Care Forex Trader Name Role Phone Chyna Borden NP Primary Care Provider [phone] Amado Naranjo MD Unavailable +- [phone] Encounter Details Date Type Department Care Team ([facility] st Contact Info) Description 08/07/2021 Procedure Pass [facility] PER[facility] [address] [place] [address] Social History Tobacco Use Types Packs/Day Years [...] documented as of this encounter Care Teams Forex Trader Relationship Specialty Start Date End Date Chyna Borden NP [address] [place] [address] [email or web address] PCP - General Family Medicine 09/27/20 Amado Naranjo MD [address] [place] [address] [email or web address] Ophthalmology 01/24/21 documented as of this encounter Additional Source Comments The information contained in this document represents components of the legal health record. It is not the complete legal health record.[facility]
--- OUTSIDE RECORDS SUMMARY | 2025-06-03 08:57 | XMS_ITS | Encounter Summary ---
Author Organization [facility] Address [address] [place] [address] Phone Care Team Providers Care Svp Research And Strategic Analysis Name Role Phone Pcp, Not Required Primary Care Provider Chyna James NP Primary Care Provider [phone] Amado Naranjo MD Unavailable [phone]- [phone] Encounter Details Date Type Department Care Team (Late st Contact Info) Description 06/01/2020 Ophth Exam [facility] [address] [place] [address] Alana Nelson MD [email or web address] Social History Tobacco Use Types Packs/Day [...] documented as of this encounter Care Teams Svp Research And Strategic Analysis Relationship Specialty Start Date End Date Pcp, Not Required [address] [place] [address] PCP - General 05/31/20 09/26/20 Chyna Borden NP [address] [place] [address] [email or web address] PCP - General Family Medicine 09/27/20 Amado Naranjo MD [address] [place] [address] [email or web address] Ophthalmology 01/24/21 documented as of this encounter Additional Source Comments The information contained in this document represents components of the legal health record. It is not the complete legal health record.[facility]
--- OUTSIDE RECORDS SUMMARY | 2025-06-03 08:57 | XMS_ITS | Encounter Summary ---
Author Organization [facility] Address [address] [place] [address] Phone Care Team Providers Care Telecommunications Sales Representative Name Role Phone Chyna Borden NP Primary Care Provider [phone] Amado Naranjo MD Unavailable +- [phone] Encounter Details Date Type Department Care Team (Late st Contact Info) Description 04/10/2021 Transcribe Orders [facility] Molly [facility] [address] [place] [address] Kalyan Benoit [address] [place] [address] [email or web address] Social History Tobacco Use Types Packs/Day Years [...] documented as of this encounter Care Teams Telecommunications Sales Representative Relationship Specialty Start Date End Date Chyna Borden NP [address] [place] [address] [email or web address] PCP - General Family Medicine 09/27/20 Amado Naranjo MD [address] [place] [address] [email or web address] Ophthalmology 01/24/21 documented as of this encounter Additional Source Comments The information contained in this document represents components of the legal health record. It is not the complete legal health record.[facility]
== END 2025-06-02 08:28 | disposition home or self-care (01) ==
LOC: HO.HOSX 08:27
PROVIDERS: Visit Provider Physician Assistant
DX: Z13.89 Encounter for screening for other disorder (principal)